=== PATIENT | male | born 1940 | race Caucasian/White ===

== ENCOUNTER 2016-11-25 14:29 | Inpatient (IN) | payer OTHER, MEDICARE ==
[~2016-11-25] VITALS: Ht 167.6 cm; Wt 92.5 kg
[~2016-11-25 14:29] MED LIST: ATOR1TAB18 PO; BACT800T5 PO; CIPR-9 PO; DIFL200T PO; METO-309 PO; NITR1SUB3 SL; ONDA1TAB17 PO
[2016-11-25 14:32] VITALS: BP 127/58; PULSE 118; RESP 24; TEMP 97.9; O2SAT 95
--- NOTE | 2016-11-25 15:03 | PD ---
HPI Chief Complaint: Abnormal Results Time Seen by Provider: 14:59 Travel History International Travel<30 days: No Contact w/Intl Traveler<30days: No Traveled to known affect area: No History of Present Illness HPI The patient is a 76-year-old male who presents emergency department from his oncologist office for abnormal lab results. 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 The patient has undergone 2 rounds of chemotherapy, the last dose approximately 3 weeks ago by his oncologist, Dr. Conteh. The patient had lab work performed at his oncologist office/the [facility], which revealed abnormal lab results including low white count, anemia, and thrombocytopenia. The patient does complain of mild shortness of breath with exertion as well as generalized weakness. He denies any acute chest pain, nausea, vomiting, or abdominal pain. Symptoms are moderate, possibly exacerbated by anemia and history of AML, and there are no current alleviating factors. He denies any fever. PFSH Past Medical History Narrative Medical AML Heart Rhythm Problems: No Cancer: No Cardiac Catheterization: No Cardiovascular Problems: Yes (TRIPLE BYPASS) High Cholesterol: Yes Chemotherapy: No Congestive Heart Failure: No Coronary Artery Disease: Yes Diabetes: No Diminished Hearing: Yes Endocrine: No Genitourinary: No Hiatal Hernia: Yes Hypertension: Yes Immune Disorder: No Musculoskeletal: No Neurologic: No Psychiatric: No Reproductive: No Respiratory: No Immunizations Current: Yes Radiation Therapy: No Thyroid Disease: No Past Surgical History Cardiac Surgery: Yes (BYPASS X 3 2003) Coronary Artery Bypass Graft: Yes Social History Alcohol Use: No Tobacco Use: No Substance Use: No Allergies-Medications (Allergen,Severity, Reaction): Coded Allergies: No Known Allergies (Unverified , 11/25/16) Reported Meds & Prescriptions Reported Meds & Active Scripts Active Lopressor (Metoprolol Tartrate) 50 Mg Tab 50 Mg PO Q12HR 30 Days Reported Atorvastatin (Atorvastatin Calcium) 80 Mg Tab 80 Mg PO HS Ondansetron (Ondansetron HCl) 8 Mg Tab 8 Mg PO TID Nitroglycerin SL (Nitroglycerin) 0.4 Mg Subl 0.4 Mg SL DIRECTED PRN ONE TABLET UNDER THE TONGUE NEEDED FOR CHEST PAIN, MAY REPEAT EVERY FIVE MINUTES FOR A TOTAL OF 3 DOSES OR CALL 911 IF NO RELIEF Review of Systems Except as stated in HPI: all other systems reviewed are Neg HENT: Positive: Lightheadedness Cardiovascular: No: Chest Pain or Discomfort Respiratory: Positive: Shortness of Breath Gastrointestinal: Positive: Constipation, No: Nausea, Vomiting, Abdominal Pain Genitourinary: No: Decreased Urinary Output Musculoskeletal: Positive: Weakness Neurologic: Positive: Weakness Physical Exam Narrative GENERAL: Awake, alert, pleasant 76-year-old male who appears his stated age and appears mildly short of breath. SKIN: Warm and dry. HEAD: Atraumatic. Normocephalic. EYES: Pallor noted bilateral. ENT: No nasal bleeding or discharge. Mucous membranes pink and moist. NECK: Trachea midline. No JVD. CARDIOVASCULAR: Regular, tachycardic with a heart rate of 115. Port in place right chest wall. RESPIRATORY: No accessory muscle use. Clear to auscultation. Breath sounds equal bilaterally. GASTROINTESTINAL: Abdomen soft, non-tender, nondistended. No rebound tenderness. MUSCULOSKELETAL: No obvious deformities. No clubbing. No cyanosis. No edema. NEUROLOGICAL: Awake and alert. No obvious cranial nerve deficits. Motor grossly within normal limits. Normal speech. PSYCHIATRIC: Appropriate mood and affect; insight and judgment normal. Data Data Last Documented VS Vital Signs Date Time Temp Pulse Resp B/P Pulse Ox O2 Delivery O2 Flow Rate FiO2 11/25/16 14:58 18 11/25/16 14:32 97.9 118 127/58 95 Room Air Orders Type And Screen (11/25/16 15:00) Complete Blood Count With Diff (11/25/16 15:00) Basic Metabolic Panel (Bmp) (11/25/16 15:00) Chest, Single Ap (11/25/16 ) Act Partial Throm Time (Ptt) (11/25/16 15:00) Prothrombin Time / Inr (Pt) (11/25/16 15:00) Red Blood Cells Irradiated (11/25/16 15:13) Blood Product Administration .UPON TRANSFUSION (11/25/16 15:13) Sodium Chlor 0.9% 250 Ml Inj (Ns 250 Ml (11/25/16 15:15) Diphenhydramine (Benadryl) (11/25/16 15:15) Acetaminophen (Tylenol) (11/25/16 15:15) Place In Observation (11/25/16 ) ^ Notify Dr: Blood Pressure (11/25/16 16:04) ^ Notify Dr: Other (11/25/16 16:04) Blood Culture (11/25/16 16:04) ^ Obtain As Needed (11/25/16 16:04) ^ Obtain As Needed (11/25/16 16:04) Vital Signs (Adult) Q4H (11/25/16 16:04) Activity Oob Ad Nguyen (11/25/16 16:04) Bedside Glucose BRET.AC&HS (11/25/16 16:04) ^ Wing Commander / Telemetry .CONTINUOUS (11/25/16 16:04) Intake + Output BRET.QSHIFT (11/25/16 16:04) Diet Heart Healthy (11/25/16 Dinner) Sodium Chlor 0.9% 1000 Ml Inj (Ns 1000 M (11/25/16 17:00) Sodium Chloride 0.9% Flush (Ns Flush) (11/25/16 16:15) Sodium Chloride 0.9% Flush (Ns Flush) (11/25/16 21:00) Acetaminophen (Tylenol) (11/25/16 17:00) Ondansetron Inj (Zofran Inj) (11/25/16 17:00) Bisacodyl Supp (Dulcolax Supp) (11/25/16 17:00) Docusate Sodium (Colace) (11/25/16 17:00) Magnesium Hydroxide Liq (Milk Of Magnesi (11/25/16 17:00) Sennosides (Senokot) (11/25/16 17:00) Basic Metabolic Panel (Bmp) (11/26/16 06:00) Complete Blood Count With Diff (11/26/16 06:00) Pt Request For Service (11/25/16 16:04) Ot Request For Service (11/25/16 16:04) Case Management Consult (11/25/16 16:04) Zolpidem (Ambien) (11/25/16 21:00) Scd Bilateral/Knee High BRET.BID (11/25/16 16:04) Acetamin-Hydrocod 325-5 Mg (Charlotte 5-325 (11/25/16 17:00) Acetamin-Hydrocod 325-7.5 Mg ([place]otte 7.5 (11/25/16 17:00) Morphine Inj (Morphine Inj) (11/25/16 17:00) Naloxone Inj (Narcan Inj) (11/25/16 16:15) Atorvastatin (Lipitor) (11/25/16 21:00) Metoprolol Tartrate (Lopressor) (11/25/16 21:00) Protein Corrected Calcium(Pcc) (11/25/16 15:23) Consult Medical Oncology (11/25/16 ) Blood Culture (11/25/16 16:28) Labs Laboratory Tests Test 11/25/16 15:23 White Blood Count 1.5 TH/MM3 Red Blood Count 1.18 MIL/MM3 Hemoglobin 3.8 GM/DL Hematocrit 10.8 % Mean Corpuscular Volume 92.2 FL Mean Corpuscular Hemoglobin 32.2 PG Mean Corpuscular Hemoglobin 35.0 % Concent Red Cell Distribution Width 21.5 % Platelet Count 18 TH/MM3 Mean Platelet Volume 7.6 FL Neutrophils (%) (Auto) % Lymphocytes (%) (Auto) % Monocytes (%) (Auto) % Eosinophils (%) (Auto) % Basophils (%) (Auto) % Neutrophils # (Auto) TH/MM3 Lymphocytes # (Auto) TH/MM3 Monocytes # (Auto) TH/MM3 Eosinophils # (Auto) TH/MM3 Basophils # (Auto) TH/MM3 CBC Comment AUTO DIFF Differential Total Cells 100 Counted Lymphocytes % 63 % Monocytes % 1 % Differential Comment FINAL DIFF MANUAL Blastocytes 36 % Platelet Estimate RARE Platelet Morphology Comment NORMAL Sodium Level 138 MEQ/L Potassium Level 3.3 MEQ/L Chloride Level 105 MEQ/L Carbon Dioxide Level 21.7 MEQ/L Anion Gap 11 MEQ/L Blood Urea Nitrogen 20 MG/DL Creatinine 0.80 MG/DL Estimat Glomerular Filtration 94 ML/MIN Rate Random Glucose 116 MG/DL Calcium Level 7.1 MG/DL Protein Corrected Calcium 7.6 MG/DL Total Protein 6.2 GM/DL Blood Type A POSITIVE Antibody Screen NEGATIVE Crossmatch Irradiated/Leukocyte-Reduced RBC Blood Bank Comment [facility] Medical Decision Making Medical Screen Exam Complete: Yes Emergency Medical Condition: Yes Medical Record Reviewed: Yes Interpretation(s) I reviewed the patient's labs that were performed at the [facility] earlier today. The patient's white count was 1.7, hemoglobin 4.2, and platelet count of 26. Last Impressions Chest X-Ray 11/25/16 0000 Signed Impressions: Service Date/Time: Friday, November 25, 2016 15:01 - CONCLUSION: No acute disease. No significant change has occurred. Brendan Chow MD Laboratory Tests Test 11/25/16 15:23 White Blood Count 1.5 TH/MM3 Red Blood Count 1.18 MIL/MM3 Hemoglobin 3.8 GM/DL Hematocrit 10.8 % Mean Corpuscular Volume 92.2 FL Mean Corpuscular Hemoglobin 32.2 PG Mean Corpuscular Hemoglobin 35.0 % Concent Red Cell Distribution Width 21.5 % Platelet Count 18 TH/MM3 Mean Platelet Volume 7.6 FL Neutrophils (%) (Auto) % Lymphocytes (%) (Auto) % Monocytes (%) (Auto) % Eosinophils (%) (Auto) % Basophils (%) (Auto) % Neutrophils # (Auto) TH/MM3 Lymphocytes # (Auto) TH/MM3 Monocytes # (Auto) TH/MM3 Eosinophils # (Auto) TH/MM3 Basophils # (Auto) TH/MM3 CBC Comment AUTO DIFF Differential Total Cells 100 Counted Lymphocytes % 63 % Monocytes % 1 % Differential Comment FINAL DIFF MANUAL Blastocytes 36 % Platelet Estimate RARE Platelet Morphology Comment NORMAL Sodium Level 138 MEQ/L Potassium Level 3.3 MEQ/L Chloride Level 105 MEQ/L Carbon Dioxide Level 21.7 MEQ/L Anion Gap 11 MEQ/L Blood Urea Nitrogen 20 MG/DL Creatinine 0.80 MG/DL Estimat Glomerular Filtration 94 ML/MIN Rate Random Glucose 116 MG/DL Calcium Level 7.1 MG/DL Protein Corrected Calcium 7.6 MG/DL Total Protein 6.2 GM/DL Blood Type A POSITIVE Antibody Screen NEGATIVE Crossmatch Irradiated/Leukocyte-Reduced RBC Blood Bank Comment Differential Diagnosis Differential diagnosis includes AML, pancytopenia, symptomatic anemia, thrombus that opinion, neutropenia, GI bleed. Narrative Course The patient's port was accessed, labs were drawn and sent, and the patient was placed on cardiac telemetry monitoring and continuous pulse oximetry monitoring. I discussed the patient with the on-call oncologist, Dr. Grier, who agrees with admission and transfusion of 4 units of irradiated blood. Therefore , the on-call medical service, [facility], were paged as the patient's insurance is [employer]. The patient will be admitted to the oncology floor. After discussion with Dr. El it was agreed the patient would not receive platelets. Physician Communication Physician Communication [facility] were paged for admission. I discussed the patient with Dr. Pettit who agrees with admission. He also requests admission to Dr. El, therefore, I called Dr. El back and placed a consult. He will evaluate the patient in the emergency department. Diagnosis Primary Impression: Symptomatic anemia Additional Impression: Pancytopenia Admitting Information Admitting Physician Requests: Admit Condition: Stable Tico Hess MD Nov 25, 2016 15:03
[2016-11-25] MEDS ORDERED: SODIUM CHLOR 0.9% 250 ML INJ 250 ML IV ONE (15:15)
--- NOTE | 2016-11-25 15:42 | RADRPT ---
EXAM DATE/TIME: 11/25/2016 15:01 [facility] COMPARISON: CHEST SINGLE AP, October 20, 2016, 0:13. INDICATIONS : Shortness of breath MEDICAL HISTORY : Leukemia. SURGICAL HISTORY : CABG. Port placement. ENCOUNTER: Initial ACUITY: 1 day PAIN SCORE: 0/10 LOCATION: Bilateral chest FINDINGS: Again noted is evidence of prior median sternotomy cardiac surgery with an indwelling right venous ca theter and some pleural-parenchymal scarring in the left base. There is no consolidative infiltrate o r change. CONCLUSION: No acute disease. No significant change has occurred. Brendan Chow MD on November 25, 2016 at 15:40 Board Certified Radiologist. This report was verified electronically.
[2016-11-25] MEDS: diphenhydrAMINE HCL 25 MG CAP PO PRN (15:43)
[2016-11-25] MEDS: ACETAMINOPHEN 325 MG TAB PO PRN (15:43)
[2016-11-25 16:03] LABS: MEAN CELL VOLUME 92.2 FL (80.0-100.0); MEAN CORPUSCULAR HEMOGLOBIN 32.2 PG (27.0-34.0); RED BLOOD COUNT 1.18 MIL/MM3 (4.50-5.90); RED CELL DISTRIBUTION WIDTH 21.5 % (11.6-17.2); WHITE BLOOD COUNT 1.5 TH/MM3 (4.0-11.0)
[2016-11-25 16:04] LABS: HEMO FLAGS AUTO DIFF
[2016-11-25 16:07] LABS: HEMATOCRIT 10.8 % (39.0-51.0); PLATELET COUNT 18 TH/MM3 (150-450)
[2016-11-25 16:14] LABS: BICARBONATE 21.7 MEQ/L (21.0-32.0); POTASSIUM 3.3 MEQ/L (3.5-5.1)
[2016-11-25] MEDS ORDERED: NALOXONE HCL 0.4 MG/ML AMP IV PRN (16:15)
[2016-11-25] MEDS ORDERED: SODIUM CHLORIDE 0.9% FLUSH 5 ML FLUSH FLUSH PRN (16:15)
[2016-11-25 16:33] LABS: CALCIUM-PROTEIN CORRECTED 7.6 MG/DL (8.5-10.1)
[2016-11-25] MEDS ORDERED: ACETAMINOPHEN/HYDROcodone 325 MG/5 MG TAB PO PRN ×2 (17:00→19:00)
[2016-11-25] MEDS ORDERED: ACETAMINOPHEN/HYDROcodone 325 MG/7.5 MG TAB PO PRN ×2 (17:00→19:00)
[2016-11-25] MEDS ORDERED: SENNOSIDES 8.6 MG TAB PO PRN (17:00)
[2016-11-25] MEDS ORDERED: BISACODYL 10 MG SUPP PR PRN (17:00)
[2016-11-25] MEDS ORDERED: MORPHINE SULFATE 4 MG/ML INJ IV PRN (17:00)
[2016-11-25] MEDS ORDERED: ONDANSETRON HCL 4 MG/2 ML VIAL IVP PRN (17:00)
[2016-11-25 17:03] LABS: BLASTS 36 % (0-0); WBC DIFF SAMPLE 100
[2016-11-25 17:04] LABS: PLATELET ESTIMATE SMEAR RARE (NORMAL); PLATELET MORPHOLOGY NORMAL (NORMAL)
[2016-11-25 17:05] LABS: SCAN/DIFF FINAL DIFF MANUAL
[2016-11-25 17:18] LABS: APTT (PATIENT) 25.5 SEC (24.3-30.1); INTERNATIONAL NORMALIZED RATIO 1.2 RATIO; PROTHROMBIN TIME - PATIENT 13.1 SEC (9.8-11.6)
[2016-11-25 17:19] VITALS: BP 125/57; PULSE 82; RESP 18; TEMP 98.5; O2SAT 95
[2016-11-25] MEDS: SODIUM CHLORIDE 0.9% FLUSH 5 ML FLUSH FLUSH SCH (17:38)
[2016-11-25] MEDS: DOCUSATE SODIUM 100 MG CAP PO SCH (17:39)
[2016-11-25 17:47] VITALS: BP 126/62; PULSE 84; RESP 18; TEMP 98.3; O2SAT 95
--- NOTE | 2016-11-25 18:51 | HHI.HP ---
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 Patient denied any cough, flulike syndrome, diarrhea or constipation or dysuria , fever or chills, no dizziness or lightheadedness, no abdominal pain diarrhea constipation, nausea or vomiting. Patient was on vidaza by Dr. Conteh, I discussed with ED physician, and Dr. 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 Perdomo decide on the next above treatment, versus 2 start cytarabine or Review of Systems Other All 10 systems reviewed and was positive for what is mentioned in history of present illness otherwise negative Past Family Social History Past Medical History Coronary artery disease status post CABG AML status post chemotherapy Hypertension Hyperlipidemia Past Surgical History CABG Allergies: Coded Allergies: No Known Allergies (Unverified , 11/25/16) Family History Reviewed noncontributory Social History Denied tobacco or illicit drug abuse He drinks draft beer 8 ounces every other day Physical Exam Vital Signs Vital Signs Date Time Temp Pulse Resp B/P Pulse Ox O2 Delivery O2 Flow Rate FiO2 11/25/16 17:47 98.3 84 18 126/62 95 Room Air 11/25/16 17:19 98.5 82 18 125/57 95 Room Air 11/25/16 14:58 18 11/25/16 14:32 97.9 118 24 127/58 95 Room Air Physical Exam GENERAL: This is a well-nourished, well-developed patient, in no apparent distress. SKIN: No rashes, warm and dry HEAD: Atraumatic. Normocephalic. EYES: Pupils equal round and reactive. Extraocular motions intact. No scleral icterus. ENT: Nose without bleeding, or drainage, Airway patent. NECK: Trachea midline. Supple CARDIOVASCULAR: Regular rate and rhythm without murmurs, gallops, or rubs. RESPIRATORY: Fair air entry bilaterally. No wheezes, rales, or rhonchi. GASTROINTESTINAL: Abdomen soft, non-tender, nondistended. Positive bowel sounds MUSCULOSKELETAL: Extremities without clubbing, cyanosis, or edema. Pedal pulses appreciated NEUROLOGICAL: Awake and alert. Moves all extremity. Normal speech.no focal neurological deficit Laboratory Laboratory Tests Test 11/25/16 15:23 White Blood Count 1.5 Red Blood Count 1.18 Hemoglobin 3.8 Hematocrit 10.8 Mean Corpuscular Volume 92.2 Mean Corpuscular Hemoglobin 32.2 Mean Corpuscular Hemoglobin 35.0 Concent Red Cell Distribution Width 21.5 Platelet Count 18 Mean Platelet Volume 7.6 Neutrophils (%) (Auto) Lymphocytes (%) (Auto) Monocytes (%) (Auto) Eosinophils (%) (Auto) Basophils (%) (Auto) Neutrophils # (Auto) Lymphocytes # (Auto) Monocytes # (Auto) Eosinophils # (Auto) Basophils # (Auto) CBC Comment AUTO DIFF Differential Total Cells 100 Counted Lymphocytes % 63 Monocytes % 1 Differential Comment FINAL DIFF MANUAL Blastocytes 36 Platelet Estimate RARE Platelet Morphology Comment NORMAL Prothrombin Time 13.1 Prothromb Time International 1.2 Ratio Activated Partial 25.5 Thromboplast Time Sodium Level 138 Potassium Level 3.3 Chloride Level 105 Carbon Dioxide Level 21.7 Anion Gap 11 Blood Urea Nitrogen 20 Creatinine 0.80 Estimat Glomerular Filtration 94 Rate Random Glucose 116 Calcium Level 7.1 Protein Corrected Calcium 7.6 Total Protein 6.2 Blood Type A POSITIVE Antibody Screen NEGATIVE Crossmatch Irradiated/Leukocyte-Reduced RBC Blood Bank Comment Date/Time Procedure Status Source Growth 11/25/16 16:50 Aerobic Blood Culture Received Blood Peripheral Pending 11/25/16 16:50 Anaerobic Blood Culture Received Blood Peripheral Pending Result Diagram: 11/25/16 1523 11/25/16 1523 Imaging Last Impressions Chest X-Ray 11/25/16 0000 Signed Impressions: Service Date/Time: Wednesday, November 25, 2016 15:01 - CONCLUSION: No acute disease. No significant change has occurred. Brendan Chow MD Assessment and Plan Assessment and Plan 76 years old male who was on chemotherapy came with Severe pancytopenia with (anemia, leukopenia, thrombocytopenia) hemoglobin of 3.8, WBC 1.5 platelet count 18 K, mostly bone marrow failure, ? 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 Yoo's in length Transferred 4 units of irradiated packed red blood cells, will try to stabilize hemoglobin at 10 Platelet transfusion , and Neupogen per oncology pain mangement with norco/morphine code status d/w pt and , decided on waiting for pt to discuss that with , we will consider palliative care consult . Start prophylaxis antibiotic and antifungal with Levaquin and Diflucan considering his pain with severe low neutrophils and history of neutropenia and odynophagia Consult infectious disease for abx recommendation Patient need to see Dr. Conteh discussed with him Resume education from home meds Discussed Condition With Patient, ED physician History medical oncology Dr. El Physician Certification 2 Midnight Certification Type: Admission for Inpatient Services Order for Inpatient Services The services are ordered in accordance with Medicare regulations or non- Medicare payer requirements, as applicable. In the case of services not specified as inpatient-only, they are appropriately provided as inpatient services in accordance with the 2-midnight benchmark. Estimated LOS (days): 2 days is the estimated time the patient will need to remain in the hospital, assuming treatment plan goals are met and no additional complications. Post-Hospital Plan: Not yet determined Mee Pettit MD Nov 25, 2016 18:51
[2016-11-25] MEDS ORDERED: MORPHINE SULFATE 4 MG/ML INJ IV PUSH PRN (19:00)
--- NOTE | 2016-11-25 19:45 | MB ---
cc: GROVER DELAROSA M.D. DATE OF CONSULTATION: 11/25/2016 REASON FOR CONSULTATION: Severe life-threatening pancytopenia in a 76 year-old male. PATIENT PROFILE The patient is a 76 year old white male. He is single. He has never been . He lives alone. He was born in [place], [place]. He has lived in [place] since 1965. He is retired and has worked for [employer]. He has never smoked. He presently does not drink. In the past there was a significant consumption of alcohol, primarily beer. HISTORY OF PRESENT ILLNESS The patient is a 76 year old male who is a patient of Dr. Zack Cnoteh. Dr. Conteh originally saw him on 07/26/2016 when he presented to [facility] with a hemoglobin of 8.7, white count 1100 and platelet count 94,000. 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 The biopsy showed a cellularity of only 15 to 20%. The patient was treated with Vidaza. I believe he has received two cycles of Vidaza. His last treatment was 3-4 weeks ago and there was supposed to be a follow up CBC and platelet counts. For some reason this did not take place. He became increasingly weak. He went to the emergency room today, 11/25, and was found to have a hemoglobin of 4.2, hematocrit 11, white count 1700 and platelet count of 26,000. The CBC was repeated. Hemoglobin 3.8, white count 1,500, platelets 18,000. The neutrophils were essentially 0. Blasts were listed as 36% and, therefore, the blast count is over 500. He has had no fever. He has had no bleeding. Other studies include lytes, BUN and creatinine, notable for potassium of 3.3. At the time the patient had a bone marrow, he was found to have an abnormal karyotype. He had an unfavorable translocation puts him in the poor prognosis category. PAST SURGICAL HISTORY: 1. [place]. 2. Fracture of left arm. PAST MEDICAL HISTORY: 1. Coronary artery disease, status post bypass surgery. 2. Hyperlipidemia. 3. Hypertension. 4. Refractory anemia with excess blasts, status post what I believe is two cycles of Vidaza. ALLERGIES: No known allergies. FAMILY HISTORY: Noncontributory. REVIEW OF SYSTEMS No change in vision or hearing. No chest pain, palpitations. He has not noted lymphadenopathy. Respiratory: Mild exertional shortness of breath. No abdominal or pelvic pain. No melena, hematochezia. No dysuria, frequency, hematuria. No bleeding of any type. No skin problems, no psychiatric problems. PHYSICAL EXAMINATION: The physical exam reveals a pale male. VITAL SIGNS: Blood pressure 120/60, respiratory rate 18, pulse 84 afebrile. O2 sat 95%. Head is normocephalic. Sclera and conjunctivae are normal. Oropharynx is unremarkable. No cervical, supraclavicular, axillary or inguinal adenopathy. Heart: Regular rhythm. Lungs: Clear without rales, wheezes or rhonchi. Abdomen: Without splenomegaly, masses or tenderness. Extremities: Trace edema. Musculoskeletal: No bone pain. Neurologic: No weakness. Cognition, affect normal. Skin: Unremarkable. ASSESSMENT The patient is 76 year male who presented with refractory anemia with excess blasts dating back to July 28, 2016 when he had a bone marrow. He has received, I believe , two cycles of Vidaza. This has clearly been ineffective. In looking at his neutrophil count, his neutrophil count has been essentially 0 since June of 2016. I cannot find a neutrophil count greater than 200. He is symptomatic from the anemia. He is not having any bleeding from the thrombocytopenia. PLAN: 1. Recommend transfusion of packed cells slowly to bring the hemoglobin up to about 10 as he is not making producing much blood. He will feel a lot better and the hemoglobin will again fall. 2. If the platelets reach 10,000, then I would transfuse platelets or if there is bleeding below 20,000, I would transfuse. 3. He has no neutrophils. If he gets a fever, then he will need to be on antibiotics. One could place him on prophylactic, Cipro and difluconazole. This is not a bad idea but at the same time he has managed without a fever for several months and therefore I would observe. 4. Question of what to do. At this point one can consider supportive care. I don't feel he will do well with induction chemotherapy. Another possibility would be decitabine, based on a recent article in the [place] Journal of Medicine. Unfortunately the outcome is likely to be poor and survival may be short. In the meantime, I would transfuse packed cells and then discharge to home. He has a follow up apt with Dr. Perdomo This coming Wednesday. MD HARDEEP Lipscomb/MELISSA /6:16 PM /7:13 PM MTDAntolin
[2016-11-25] MEDS ORDERED: LEVOFLOXACIN 500 MG PREMIX INJ 100 ML IV SCH (20:00)
[2016-11-25 20:31] VITALS: BP 133/75; PULSE 94; RESP 18; TEMP 98.5; O2SAT 97
[2016-11-25 20:50] VITALS: BP 135/58; PULSE 97; RESP 18; TEMP 98.7; O2SAT 100
[2016-11-25] MEDS ORDERED: ZOLPIDEM TARTRATE 5 MG TAB PO PRN (21:00)
[2016-11-25] MEDS ORDERED: FLUCONAZOLE 200 MG PREMIX BAG 100 ML IV ONE (21:00)
[2016-11-25] MEDS: SODIUM CHLOR 0.9% 1000 ML INJ 1,000 ML IV SCH (21:07)
[2016-11-25] MEDS: METOPROLOL TARTRATE 50 MG TAB PO SCH (21:08)
[2016-11-25] MEDS: ATORVASTATIN 80 MG TAB PO SCH (21:08)
[2016-11-25 21:27] VITALS: PULSE 97
[2016-11-26] VITALS (14 sets, daily range): BP systolic 106–159; BP diastolic 51–77; PULSE 81–101; RESP 2–20; TEMP 98–99.3; O2SAT 95–99
[2016-11-26 01:06] LABS: REVIEW FLAG FINAL
[2016-11-26 01:10] LABS: HEMATOCRIT 14.1 % (39.0-51.0)
[2016-11-26] MEDS: SODIUM CHLOR 0.9% 1000 ML INJ 1,000 ML IV SCH ×3 (03:00→21:24)
[2016-11-26] MEDS: DOCUSATE SODIUM 100 MG CAP PO SCH ×2 (05:19→17:00)
[2016-11-26] MEDS: diphenhydrAMINE HCL 25 MG CAP PO PRN ×2 (06:29→12:03)
[2016-11-26] MEDS: ACETAMINOPHEN 325 MG TAB PO PRN ×2 (06:29→12:04)
[2016-11-26] MEDS: METOPROLOL TARTRATE 50 MG TAB PO SCH ×2 (09:00→21:23)
[2016-11-26] MEDS: SODIUM CHLORIDE 0.9% FLUSH 5 ML FLUSH FLUSH SCH ×2 (09:00→21:23)
--- NOTE | 2016-11-26 13:34 | PD.ID.CON ---
History of Present Illness Service ID Consult Requested By Dr Pettit Reason for Consult antibiotic recommndations, immunosuppresed pt recent abx treatment Primary Care Physician Codey Jaimes MD Diagnoses: History of Present Illness Pt is known to me from previous admissionin September76 years old male with history of acute myelocytic leukemia, sp chemotherapy was admitted 4 weeks ago with febrile neutropenia, mucositis and odynaphagia Pt markedly improved on fluconazole and his odynophagia was presumed to be caused by candidal [place] He clinically improved and was released on po diflucan Patient presented to the ED yday complaining of fatigue, dizziness and poor appetite He was noted to have profoud cytopenia He is getting blood transfusions No objective fever CXR is negative Co dark urine that he noted at home, but denies other urinary complaints No nausea, vomiting + loose stool Blood clx is negative at 1 day Review of Systems Other as per history of present illness, the rest of 12 point review is negative Past Family Social History Allergies: Coded Allergies: No Known Allergies (Unverified , 11/25/16) Past Medical History Coronary artery disease status post CABG AML status post chemotherapy Hypertension Hyperlipidemia Past Surgical History CABG in 2002 Active Ordered Medications Medications where reviewed in EMR Antibiotics Include: levaquine IV fluconazole x 1 dose Family History sister with colon cancer Social History Denied tobacco or illicit drug abuse He drinks couple beers once or twice a week Physical Exam Vital Signs Vital Signs Date Time Temp Pulse Resp B/P Pulse Ox O2 Delivery O2 Flow Rate FiO2 11/26/16 12:52 98.1 82 18 134/62 98 11/26/16 12:12 98.0 81 20 128/52 99 11/26/16 10:00 98.2 81 18 110/58 96 11/26/16 08:00 98.1 83 20 106/51 96 11/26/16 08:00 84 11/26/16 06:34 98.0 93 20 137/62 99 11/26/16 06:15 98.0 92 20 127/58 95 11/26/16 01:45 98.8 93 2 111/56 98 11/26/16 01:30 98.9 90 20 130/56 98 11/26/16 00:15 99.3 91 18 128/63 99 11/25/16 21:27 97 11/25/16 20:50 98.7 97 18 135/58 100 11/25/16 20:31 98.5 94 18 133/75 97 Room Air 11/25/16 17:47 98.3 84 18 126/62 95 Room Air 11/25/16 17:19 98.5 82 18 125/57 95 Room Air 11/25/16 14:58 18 11/25/16 14:32 97.9 118 24 127/58 95 Room Air Physical Exam CONSTITUTIONAL/GENERAL: This is a well nourished patient, in no apparent distress. OOB in chait TUBES/LINES/DRAINS: PORT in place R chest - looks OK SKIN: No jaundice, rashes, or lesions. . Skin temperature appropriate. Not diaphoretic. HEAD: Atraumatic. Normocephalic. EYES: Pupils equal and round and reactive. Extraocular motions intact. No scleral icterus. No injection or drainage. Fundi not examined. ENT: Hearing grossly normal. Nose without bleeding or purulent drainage. Oral mucosae w/o thrush or lesions Dentition is poor NECK: Trachea midline. Supple, nontender. No palpable thyroid enlargement or nodularity. CARDIOVASCULAR: Regular rate and rhythm without murmurs, gallops, or rubs. No JVD. Peripheral pulses symmetric. RESPIRATORY/CHEST: Symmetric, unlabored respirations. Clear to auscultation. Breath sounds equal bilaterally. No wheezes, rales, or rhonchi. GASTROINTESTINAL: Abdomen soft, non-tender, nondistended. No hepato-splenomegaly , or palpable masses. No guarding. Bowel sounds present. GENITOURINARY: Without palpable bladder distension MUSCULOSKELETAL: Extremities without clubbing, cyanosis, 1+ tight BLE edema. No joint tenderness or effusion noted. No calf tenderness. No mottling or clubbing. LYMPHATICS: No palpable cervical or supraclavicular adenopathy. NEUROLOGICAL: Awake and alert. Motor and sensory grossly within normal limits. Follows commands. Normal speech Moves all extremities. PSYCHIATRIC: No obvious anxiety/depression. no apparent hallucinations or other psychotic thought process. Laboratory Laboratory Tests Test 11/25/16 11/26/16 15:23 00:24 White Blood Count 1.5 Red Blood Count 1.18 Hemoglobin 3.8 4.9 Hematocrit 10.8 14.1 Mean Corpuscular Volume 92.2 Mean Corpuscular Hemoglobin 32.2 Mean Corpuscular Hemoglobin 35.0 Concent Red Cell Distribution Width 21.5 Platelet Count 18 Mean Platelet Volume 7.6 Neutrophils (%) (Auto) Lymphocytes (%) (Auto) Monocytes (%) (Auto) Eosinophils (%) (Auto) Basophils (%) (Auto) Neutrophils # (Auto) Lymphocytes # (Auto) Monocytes # (Auto) Eosinophils # (Auto) Basophils # (Auto) CBC Comment AUTO DIFF Differential Total Cells 100 Counted Lymphocytes % 63 Monocytes % 1 Differential Comment FINAL DIFF MANUAL Blastocytes 36 Platelet Estimate RARE Platelet Morphology Comment NORMAL Prothrombin Time 13.1 Prothromb Time International 1.2 Ratio Activated Partial 25.5 Thromboplast Time Sodium Level 138 Potassium Level 3.3 Chloride Level 105 Carbon Dioxide Level 21.7 Anion Gap 11 Blood Urea Nitrogen 20 Creatinine 0.80 Estimat Glomerular Filtration 94 Rate Random Glucose 116 Calcium Level 7.1 Protein Corrected Calcium 7.6 Total Protein 6.2 Blood Type A POSITIVE Antibody Screen NEGATIVE Crossmatch Irradiated/Leukocyte-Reduced RBC Blood Bank Comment Date/Time Procedure Status Source Growth 11/25/16 16:50 Aerobic Blood Culture - Preliminary Resulted Blood Peripheral NO GROWTH IN 1 DAY 11/25/16 16:50 Anaerobic Blood Culture - Preliminary Resulted Blood Peripheral NO GROWTH IN 1 DAY Result Diagram: 11/26/16 0024 11/25/16 1523 Imaging Last Impressions Chest X-Ray 11/25/16 0000 Signed Impressions: Service Date/Time: Friday, November 25, 2016 15:01 - CONCLUSION: No acute disease. No significant change has occurred. Brendan Chow MD Assessment and Plan Assessment and Plan AML sp chemo - blasts present in periferal blood Neutropenia, profound Pancytponia with plts < 20K and Hb of 3.8 Symptomatic anemia mucositis, resolved Probable candidal esophagitis - sp treatment - resolved ? UTI vs hematuria - cont levaquin po for now - chk urine clx -monitor clincially - monitor blood clx untill final Discussed Condition With Teresa Hutchinson MD Nov 26, 2016 13:34
[2016-11-26 17:21] LABS: BICARBONATE 25.1 MEQ/L (21.0-32.0); POTASSIUM 3.6 MEQ/L (3.5-5.1)
[2016-11-26 17:51] LABS: HEMATOCRIT 23.3 % (39.0-51.0); HEMO FLAGS AUTO DIFF; MEAN CORPUSCULAR HEMOGLOBIN 30.6 PG (27.0-34.0); RED BLOOD COUNT 2.74 MIL/MM3 (4.50-5.90); RED CELL DISTRIBUTION WIDTH 15.1 % (11.6-17.2); WHITE BLOOD COUNT 1.9 TH/MM3 (4.0-11.0)
[2016-11-26 17:54] LABS: PLATELET COUNT 14 TH/MM3 (150-450)
[2016-11-26 18:14] LABS: CORRECTED NUCLEATED RBC 2 /100 WBC (0-0); POLYS (SEG NEUTROPHILS) 2 % (16-70); WBC DIFF SAMPLE 100
[2016-11-26 18:17] LABS: BLASTS 41 % (0-0)
[2016-11-26 18:18] LABS: PLATELET ESTIMATE SMEAR RARE (NORMAL); PLATELET MORPHOLOGY NORMAL (NORMAL); SCAN/DIFF FINAL DIFF MANUAL
--- NOTE | 2016-11-26 20:04 | HHI.PR ---
Subjective Remarks Follow up on severe life-threatening pancytopenia Patient seen and examined earlier today Ported no fever chest pain cough, diarrhea or constipation, chills or night sweat Objective Vitals Vital Signs Date Time Temp Pulse Resp B/P Pulse Ox O2 Delivery O2 Flow Rate FiO2 11/26/16 16:10 98.2 81 18 112/58 98 11/26/16 16:00 98.9 101 20 159/73 97 11/26/16 12:52 98.1 82 18 134/62 98 11/26/16 12:12 98.0 81 20 128/52 99 11/26/16 12:00 98.6 86 20 130/62 99 11/26/16 10:00 98.2 81 18 110/58 96 11/26/16 08:00 98.1 83 20 106/51 96 11/26/16 08:00 84 11/26/16 06:34 98.0 93 20 137/62 99 11/26/16 06:15 98.0 92 20 127/58 95 11/26/16 01:45 98.8 93 2 111/56 98 11/26/16 01:30 98.9 90 20 130/56 98 11/26/16 00:15 99.3 91 18 128/63 99 11/25/16 21:27 97 11/25/16 20:50 98.7 97 18 135/58 100 11/25/16 20:31 98.5 94 18 133/75 97 Room Air I/O 11/25/16 11/25/16 11/25/16 11/26/16 11/26/16 11/26/16 06:59 14:59 22:59 06:59 14:59 22:59 Intake Total 240 ml 480 ml 480 ml Output Total 600 ml 225 ml Balance 240 ml -120 ml 255 ml Intake Oral 240 ml 480 ml 480 ml Output Urine Total 600 ml 225 ml # Voids 1 # Bowel Movements 0 Result Diagram: 11/26/16 1615 11/26/16 1615 Imaging Last Impressions Chest X-Ray 11/25/16 0000 Signed Impressions: Service Date/Time: Friday, November 25, 2016 15:01 - CONCLUSION: No acute disease. No significant change has occurred. Brendan Chow MD Objective Remarks GENERAL: This is a well-nourished, well-developed patient, in no apparent distress. SKIN: No rashes, warm and dry HEAD: Atraumatic. Normocephalic. EYES: Pupils equal round and reactive. Extraocular motions intact. No scleral icterus. ENT: Nose without bleeding, or drainage, Airway patent. NECK: Trachea midline. Supple CARDIOVASCULAR: Regular rate and rhythm without murmurs, gallops, or rubs. RESPIRATORY: Fair air entry bilaterally. No wheezes, rales, or rhonchi. GASTROINTESTINAL: Abdomen soft, non-tender, nondistended. Positive bowel sounds MUSCULOSKELETAL: Extremities without clubbing, cyanosis, or edema. Pedal pulses appreciated NEUROLOGICAL: Awake and alert. Moves all extremity. Normal speech.no focal neurological deficit A/P Assessment and Plan 76 years old male who was on chemotherapy came with Severe pancytopenia with (anemia, leukopenia, thrombocytopenia) hemoglobin of 3.8, WBC 1.5 platelet count 18 K, mostly bone marrow failure, ? 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 El Transferred 4 units of irradiated packed red blood cells, will try to stabilize hemoglobin at 10 Platelet transfusion , and Neupogen per oncology if platelets less than 10 K pain mangement with norco/morphine code status d/w pt and , decided on waiting for pt to discuss that with , we will consider palliative care consult . Start prophylaxis antibiotic and antifungal with Levaquin and Diflucan 1 dose 200 mg IVP, considering his pain with severe low neutrophils and history of neutropenia and odynophagia Appreciate infectious disease consultation for antibiotic recommendation, continue Levaquin switched to by mouth , oncology added cefepime later on 11/26 Patient need to see Dr. Conteh discussed with him Resume education from [facility] Mee Pettit MD Nov 26, 2016 20:04
--- NOTE | 2016-11-26 20:07 | PD.ONC.PN ---
Subjective Subjective Remarks tired and feels weak Objective Data Date Time Temp Pulse Resp B/P Pulse Ox O2 Delivery O2 Flow Rate FiO2 11/26/16 16:10 98.2 81 18 112/58 98 11/26/16 16:00 98.9 101 20 159/73 97 11/26/16 12:52 98.1 82 18 134/62 98 11/26/16 12:12 98.0 81 20 128/52 99 11/26/16 12:00 98.6 86 20 130/62 99 11/26/16 10:00 98.2 81 18 110/58 96 11/26/16 08:00 98.1 83 20 106/51 96 11/26/16 08:00 84 11/26/16 06:34 98.0 93 20 137/62 99 11/26/16 06:15 98.0 92 20 127/58 95 11/26/16 01:45 98.8 93 2 111/56 98 11/26/16 01:30 98.9 90 20 130/56 98 11/26/16 00:15 99.3 91 18 128/63 99 11/25/16 21:27 97 11/25/16 20:50 98.7 97 18 135/58 100 11/25/16 20:31 98.5 94 18 133/75 97 Room Air 11/26/16 11/26/16 11/26/16 07:00 15:00 23:00 Intake Total 480 ml 480 ml Output Total 600 ml 225 ml Balance -120 ml 255 ml Result Diagram: 11/26/16 1615 11/26/16 1615 Laboratory Results Laboratory Tests Test 11/26/16 11/26/16 00:24 16:15 Hemoglobin 4.9 GM/DL 8.4 GM/DL Hematocrit 14.1 % 23.3 % White Blood Count 1.9 TH/MM3 Red Blood Count 2.74 MIL/MM3 Mean Corpuscular Volume 85.0 FL Mean Corpuscular Hemoglobin 30.6 PG Mean Corpuscular Hemoglobin 36.0 % Concent Red Cell Distribution Width 15.1 % Platelet Count 14 TH/MM3 Mean Platelet Volume 7.9 FL Neutrophils (%) (Auto) % Lymphocytes (%) (Auto) % Monocytes (%) (Auto) % Eosinophils (%) (Auto) % Basophils (%) (Auto) % Neutrophils # (Auto) TH/MM3 Lymphocytes # (Auto) TH/MM3 Monocytes # (Auto) TH/MM3 Eosinophils # (Auto) TH/MM3 Basophils # (Auto) TH/MM3 CBC Comment AUTO DIFF Differential Total Cells 100 Counted Neutrophils % (Manual) 2 % Lymphocytes % 52 % Monocytes % 5 % Neutrophils # (Manual) 0.0 TH/MM3 Nucleated Red Blood Cells 2 /100 WBC Differential Comment FINAL DIFF MANUAL Blastocytes 41 % Platelet Estimate RARE Platelet Morphology Comment NORMAL Sodium Level 136 MEQ/L Potassium Level 3.6 MEQ/L Chloride Level 102 MEQ/L Carbon Dioxide Level 25.1 MEQ/L Anion Gap 9 MEQ/L Blood Urea Nitrogen 17 MG/DL Creatinine 0.70 MG/DL Estimat Glomerular Filtration 110 ML/MIN Rate Random Glucose 100 MG/DL Calcium Level 7.7 MG/DL Culture Results Microbiology Date/Time Procedure Status Source Growth 11/25/16 16:00 Aerobic Blood Culture - Preliminary Resulted Blood Peripheral NO GROWTH IN 1 DAY 11/25/16 16:00 Anaerobic Blood Culture - Preliminary Resulted Blood Peripheral NO GROWTH IN 1 DAY 11/25/16 16:50 Aerobic Blood Culture - Preliminary Resulted Blood Peripheral NO GROWTH IN 1 DAY 11/25/16 16:50 Anaerobic Blood Culture - Preliminary Resulted Blood Peripheral NO GROWTH IN 1 DAY Administered Medications Medications (Trade) Dose Ordered Sig/Catina Route PRN Reason Start Time Stop Time Status Last Admin Dose Admin Sodium Chloride (NS 1000 ml Inj) 1,000 ml @ 100 mls/hr Q10H IV 11/25/16 17:00 11/25/16 21:07 IV Flush (NS Flush) 2 ml BID FLUSH 11/25/16 21:00 11/25/16 17:38 Acetaminophen (Tylenol) 650 mg Q4H PRN PO TEMP > 100.4 11/25/16 17:00 11/26/16 12:04 Docusate Sodium (Colace) 100 mg Q12H PO 11/25/16 17:00 11/26/16 05:19 Atorvastatin Calcium (Lipitor) 80 mg HS PO 11/25/16 21:00 11/25/16 21:08 Metoprolol Tartrate (Lopressor) 50 mg Q12HR PO 11/25/16 21:00 11/25/16 21:08 Objective Remarks GENERAL: sallow HEAD: Normocephalic. EYES: No scleral icterus. No injection or drainage. NECK: Supple, trachea midline. No JVD or lymphadenopathy. LYMPHATIC: No adenopathy. CARDIOVASCULAR: irregular rate and rhythm without murmurs. RESPIRATORY: Breath sounds equal bilaterally. No accessory muscle use. GASTROINTESTINAL: Abdomen soft, non-tender, nondistended. EXTREMITIES: +1 edema MUSCULOSKELETAL: Adequate muscle tone. NEUROLOGICAL: No obvious focal deficit. Awake, alert, and oriented x3. PSYCHIATRIC: Appropriate mood and affect; insight and judgment normal. Assessment/Plan Assessment 1: patient had temp of 100.2 few hours ago and now 99.9 with sweating: Must presume he has infection given low neutrophil count. I called Dr. Henriquez and will discontinue levaquin and treat with cefepime and continue Diflucan. 2: would gradually transfuse to 9-10 range as he will feel better and not because the outcome will be improved. 3: I spoke to the patient and brother about the fact that if he has an arrest the likelihood of a meaningful recovery with CPR is remote given AML/RAEB with no neutrophils. He is thinking about implementing his living will and will let us know tomorrow but wants a day to give it thought. 3: if platelets less then or equal to 10,000 would transfuse single unit donor plat pack. Adriel El MD Nov 26, 2016 20:07
[2016-11-26] MEDS: CEFEPIME INJ 2,000 MG in SODIUM CHLORIDE 0.9% INJ 100 ML IV SCH (21:21)
[2016-11-26] MEDS: LEVOFLOXACIN 500 MG TAB PO SCH (21:22)
[2016-11-26] MEDS: ATORVASTATIN 80 MG TAB PO SCH (21:22)
[2016-11-27] VITALS (9 sets, daily range): BP systolic 100–127; BP diastolic 55–73; PULSE 75–99; RESP 16–19; TEMP 96.8–100.2; O2SAT 95–99
[2016-11-27 04:28] LABS: MEAN CORPUSCULAR HGB CONC 36.2 % (32.0-36.0)
[2016-11-27] MEDS: MAGNESIUM HYDROXIDE SUSP 30 ML CUP PO PRN (05:16)
[2016-11-27] MEDS: CEFEPIME INJ 2,000 MG in SODIUM CHLORIDE 0.9% INJ 100 ML IV SCH ×3 (05:16→21:00)
[2016-11-27] MEDS: DOCUSATE SODIUM 100 MG CAP PO SCH ×2 (05:17→15:21)
[2016-11-27 05:40] LABS: HEMATOCRIT 21.5 % (39.0-51.0); MEAN CELL VOLUME 84.9 FL (80.0-100.0); MEAN CORPUSCULAR HEMOGLOBIN 30.7 PG (27.0-34.0); RED BLOOD COUNT 2.53 MIL/MM3 (4.50-5.90); RED CELL DISTRIBUTION WIDTH 14.9 % (11.6-17.2); WHITE BLOOD COUNT 1.8 TH/MM3 (4.0-11.0)
[2016-11-27 05:52] LABS: HEMO FLAGS AUTO DIFF
[2016-11-27 05:57] LABS: PLATELET COUNT 14 TH/MM3 (150-450)
--- NOTE | 2016-11-27 08:07 | PD.ONC.PN ---
Subjective Subjective Remarks feels better since antibiotics started. had incontinence of liquid stool this am. Objective Data Date Time Temp Pulse Resp B/P Pulse Ox O2 Delivery O2 Flow Rate FiO2 11/27/16 04:15 99.0 75 19 114/63 98 11/27/16 00:10 100.2 99 19 111/55 99 11/26/16 21:19 92 11/26/16 20:45 98.7 100 19 122/77 98 11/26/16 16:10 98.2 81 18 112/58 98 11/26/16 16:00 98.9 101 20 159/73 97 11/26/16 12:52 98.1 82 18 134/62 98 11/26/16 12:12 98.0 81 20 128/52 99 11/26/16 12:00 98.6 86 20 130/62 99 11/26/16 10:00 98.2 81 18 110/58 96 11/27/16 11/27/16 11/27/16 06:59 14:59 22:59 Intake Total 120 ml Output Total 300 ml Balance -180 ml Result Diagram: 11/27/16 0520 11/26/16 1615 Laboratory Results Laboratory Tests Test 11/26/16 11/27/16 16:15 05:20 White Blood Count 1.9 TH/MM3 1.8 TH/MM3 Red Blood Count 2.74 MIL/MM3 2.53 MIL/MM3 Hemoglobin 8.4 GM/DL 7.8 GM/DL Hematocrit 23.3 % 21.5 % Mean Corpuscular Volume 85.0 FL 84.9 FL Mean Corpuscular Hemoglobin 30.6 PG 30.7 PG Mean Corpuscular Hemoglobin 36.0 % 36.2 % Concent Red Cell Distribution Width 15.1 % 14.9 % Platelet Count 14 TH/MM3 14 TH/MM3 Mean Platelet Volume 7.9 FL 7.8 FL Neutrophils (%) (Auto) % % Lymphocytes (%) (Auto) % % Monocytes (%) (Auto) % % Eosinophils (%) (Auto) % % Basophils (%) (Auto) % % Neutrophils # (Auto) TH/MM3 TH/MM3 Lymphocytes # (Auto) TH/MM3 TH/MM3 Monocytes # (Auto) TH/MM3 TH/MM3 Eosinophils # (Auto) TH/MM3 TH/MM3 Basophils # (Auto) TH/MM3 TH/MM3 CBC Comment AUTO DIFF AUTO DIFF Differential Total Cells 100 Counted Neutrophils % (Manual) 2 % Lymphocytes % 52 % Monocytes % 5 % Neutrophils # (Manual) 0.0 TH/MM3 Nucleated Red Blood Cells 2 /100 WBC Differential Comment FINAL DIFF MANUAL Blastocytes 41 % Platelet Estimate RARE Platelet Morphology Comment NORMAL Sodium Level 136 MEQ/L Potassium Level 3.6 MEQ/L Chloride Level 102 MEQ/L Carbon Dioxide Level 25.1 MEQ/L Anion Gap 9 MEQ/L Blood Urea Nitrogen 17 MG/DL Creatinine 0.70 MG/DL Estimat Glomerular Filtration 110 ML/MIN Rate Random Glucose 100 MG/DL Calcium Level 7.7 MG/DL Culture Results Microbiology Date/Time Procedure Status Source Growth 11/25/16 16:00 Aerobic Blood Culture - Preliminary Resulted Blood Peripheral NO GROWTH IN 1 DAY 11/25/16 16:00 Anaerobic Blood Culture - Preliminary Resulted Blood Peripheral NO GROWTH IN 1 DAY 11/25/16 16:50 Aerobic Blood Culture - Preliminary Resulted Blood Peripheral NO GROWTH IN 1 DAY 11/25/16 16:50 Anaerobic Blood Culture - Preliminary Resulted Blood Peripheral NO GROWTH IN 1 DAY 11/26/16 21:50 Urine Culture Received Urine Clean Catch Pending Administered Medications Medications (Trade) Dose Ordered Sig/Catina Route PRN Reason Start Time Stop Time Status Last Admin Dose Admin Sodium Chloride (NS 1000 ml Inj) 1,000 ml @ 100 mls/hr Q10H IV 11/25/16 17:00 11/26/16 21:24 IV Flush (NS Flush) 2 ml BID FLUSH 11/25/16 21:00 11/26/16 21:23 Acetaminophen (Tylenol) 650 mg Q4H PRN PO TEMP > 100.4 11/25/16 17:00 11/26/16 12:04 Docusate Sodium (Colace) 100 mg Q12H PO 11/25/16 17:00 11/27/16 05:17 Magnesium Hydroxide (Milk Of Magnesia Liq) 30 ml Q12H PRN PO CONSTIPATION 11/25/16 17:00 11/27/16 05:16 Sennosides (Senokot) 17.2 mg Q12H PRN PO CONSTIPATION 11/25/16 17:00 11/27/16 05:17 Atorvastatin Calcium (Lipitor) 80 mg HS PO 11/25/16 21:00 11/26/16 21:22 Metoprolol Tartrate (Lopressor) 50 mg Q12HR PO 11/25/16 21:00 11/26/16 21:23 Levofloxacin 500 mg 500 mg Q24H PO 11/26/16 21:00 11/26/16 21:22 Cefepime HCl/ Sodium Chloride (Maxipime Inj/NS Inj) 100 ml @ 200 mls/hr Q8H IV 11/26/16 20:00 11/27/16 05:16 Objective Remarks GENERAL: frail SKIN: Warm and dry. HEAD: Normocephalic. EYES: No scleral icterus. No injection or drainage. NECK: Supple, trachea midline. No JVD or lymphadenopathy. LYMPHATIC: No adenopathy. CARDIOVASCULAR: Regular rate and rhythm without murmurs. RESPIRATORY: Breath sounds equal bilaterally. No accessory muscle use. GASTROINTESTINAL: Abdomen soft, non-tender, nondistended. EXTREMITIES: +1 edema MUSCULOSKELETAL: Adequate muscle tone. NEUROLOGICAL: No obvious focal deficit. Awake, alert, and oriented x3. PSYCHIATRIC: sad as life coming to a close. Assessment/Plan Assessment 1: discussed code status again this am and the fact that a successful resuscitation is remote occurring in face of AML at age 76. He has elected no CPR and orders entered. 2: cefepime started last night and temp is down and he feels better. would continue same 3: if platelets less then or equal to 10,000 would transfuse single unit donor plat pack or transfuse if any bleeding at current level 4: Dr. Conteh will be back early next week to address the possibility of additional treatment versus supportive care 5: will transfuse 1 unit of packed cells. Order placed. Adriel El MD Nov 27, 2016 08:07
[2016-11-27] MEDS: METOPROLOL TARTRATE 50 MG TAB PO SCH ×2 (08:26→20:59)
[2016-11-27] MEDS: SODIUM CHLORIDE 0.9% FLUSH 5 ML FLUSH FLUSH SCH ×2 (08:32→20:59)
[2016-11-27] MEDS: SODIUM CHLOR 0.9% 1000 ML INJ 1,000 ML IV SCH ×3 (09:00→20:59)
[2016-11-27 09:49] LABS: BLASTS 38 % (0-0); CORRECTED NUCLEATED RBC 1 /100 WBC (0-0); PLATELET ESTIMATE SMEAR RARE (NORMAL); PLATELET MORPHOLOGY NORMAL (NORMAL); POLYS (SEG NEUTROPHILS) 1 % (16-70); SCAN/DIFF FINAL DIFF MANUAL; WBC DIFF SAMPLE 100
[2016-11-27 11:49] LABS: C. DIFF EPI 027 PRESUMPTIVE NEGATIVE (NEGATIVE); C. DIFF TOXIN PCR NEGATIVE (NEGATIVE)
--- NOTE | 2016-11-27 13:15 | HHI.PR ---
Subjective Remarks No fever overnight, no chills no chest and or cough Reported to loose stool bowel movement Objective Vitals Vital Signs Date Time Temp Pulse Resp B/P Pulse Ox O2 Delivery O2 Flow Rate FiO2 11/27/16 12:00 96.8 81 18 100/58 95 11/27/16 11:55 98.4 76 19 120/67 98 11/27/16 11:40 96.8 81 18 100/58 95 11/27/16 08:00 98.1 75 18 125/71 96 11/27/16 04:15 99.0 75 19 114/63 98 11/27/16 00:10 100.2 99 19 111/55 99 11/26/16 21:19 92 11/26/16 20:45 98.7 100 19 122/77 98 11/26/16 16:10 98.2 81 18 112/58 98 11/26/16 16:00 98.9 101 20 159/73 97 I/O 11/26/16 11/26/16 11/26/16 11/27/16 11/27/16 11/27/16 07:00 15:00 23:00 07:00 15:00 23:00 Intake Total 480 ml 480 ml 240 ml 120 ml Output Total 600 ml 225 ml 100 ml 300 ml Balance -120 ml 255 ml 140 ml -180 ml Intake Oral 480 ml 480 ml 240 ml 120 ml Output Urine Total 600 ml 225 ml 100 ml 300 ml # Voids 1 # Bowel Movements 0 0 0 Result Diagram: 11/27/16 0520 11/26/16 1615 Objective Remarks GENERAL: This is a well-nourished, well-developed patient, in no apparent distress. SKIN: No rashes, warm and dry HEAD: Atraumatic. Normocephalic. EYES: Pupils equal round and reactive. Extraocular motions intact. No scleral icterus. ENT: Nose without bleeding, or drainage, Airway patent. NECK: Trachea midline. Supple CARDIOVASCULAR: Regular rate and rhythm without murmurs, gallops, or rubs. RESPIRATORY: Fair air entry bilaterally. No wheezes, rales, or rhonchi. GASTROINTESTINAL: Abdomen soft, non-tender, nondistended. Positive bowel sounds MUSCULOSKELETAL: Extremities without clubbing, cyanosis, or edema. Pedal pulses appreciated NEUROLOGICAL: Awake and alert. Moves all extremity. Normal speech.no focal neurological deficit A/P Assessment and Plan 76 years old male who was on chemotherapy came with Severe pancytopenia with (anemia, leukopenia, thrombocytopenia) hemoglobin of 3.8, WBC 1.5 platelet count 18 K, mostly bone marrow failure, ? 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 difficile Started on cefepime by oncology Hemoglobin dropped back to 7.6, extra units of packed red blood cells has been transfused ordered by oncology, Continue monitoring H&H every 6 hours, CBC daily Monitor blood culture medical oncology, following D/W Dr. El Transfuse 4 units of irradiated packed red blood cells, will try to stabilize hemoglobin at 10 Platelet transfusion , and Neupogen per oncology if platelets less than 10 K pain mangement with norco/morphine code status d/w pt and , patient selected DNR status. Start prophylaxis antibiotic and antifungal with Levaquin and Diflucan 1 dose 200 mg IVP, considering his pain with severe low neutrophils and history of neutropenia and odynophagia Appreciate infectious disease consultation for antibiotic recommendation, continue Levaquin switched to by mouth , oncology added cefepime later on due to fever 100.2 Patient need to see Dr. Conteh discussed with him Resume education from home meds Mee Pettit MD Nov 27, 2016 13:15
[2016-11-27] MEDS ORDERED: Vancomycin Consult Pharmacy 1 EA IV SCH (14:45)
[2016-11-27] MEDS: VANCOMYCIN INJ 1,750 MG in SODIUM CHLORID 0.9% 500 ML INJ 500 ML IV SCH (17:53)
--- NOTE | 2016-11-27 20:47 | HHI.IDPN ---
Subjective Subjective Remarks feeels better yday had low grade fever seen by Dr Del Cid pt was started on cefepime for suspected neutropenic fever BC today GPC in 1 bottle co lower back/buttock pain Antibiotics cefepime vanco added 11/27 Allergies: Coded Allergies: No Known Allergies (Unverified , 11/25/16) Objective . Vital Signs Date Time Temp Pulse Resp B/P Pulse Ox O2 Delivery O2 Flow Rate FiO2 11/27/16 16:00 98.8 90 19 118/73 99 11/27/16 15:20 99.0 80 18 127/62 99 11/27/16 12:00 96.8 81 18 100/58 95 11/27/16 11:55 98.4 76 19 120/67 98 11/27/16 11:40 96.8 81 18 100/58 95 11/27/16 08:00 98.1 75 18 125/71 96 11/27/16 04:15 99.0 75 19 114/63 98 11/27/16 00:10 100.2 99 19 111/55 99 11/26/16 21:19 92 11/26/16 20:45 98.7 100 19 122/77 98 11/26/16 11/26/16 11/27/16 15:00 23:00 07:00 Intake Total 480 ml 240 ml 120 ml Output Total 225 ml 100 ml 300 ml Balance 255 ml 140 ml -180 ml Intake Oral 480 ml 240 ml 120 ml Output Urine Total 225 ml 100 ml 300 ml # Voids 1 # Bowel Movements 0 0 0 . Laboratory Tests Test 11/26/16 11/26/16 11/27/16 00:24 16:15 05:20 Hemoglobin 4.9 GM/DL 8.4 GM/DL 7.8 GM/DL Hematocrit 14.1 % 23.3 % 21.5 % White Blood Count 1.9 TH/MM3 1.8 TH/MM3 Red Blood Count 2.74 MIL/MM3 2.53 MIL/MM3 Mean Corpuscular Volume 85.0 FL 84.9 FL Mean Corpuscular Hemoglobin 30.6 PG 30.7 PG Mean Corpuscular Hemoglobin 36.0 % 36.2 % Concent Red Cell Distribution Width 15.1 % 14.9 % Platelet Count 14 TH/MM3 14 TH/MM3 Mean Platelet Volume 7.9 FL 7.8 FL Neutrophils (%) (Auto) % % Lymphocytes (%) (Auto) % % Monocytes (%) (Auto) % % Eosinophils (%) (Auto) % % Basophils (%) (Auto) % % Neutrophils # (Auto) TH/MM3 TH/MM3 Lymphocytes # (Auto) TH/MM3 TH/MM3 Monocytes # (Auto) TH/MM3 TH/MM3 Eosinophils # (Auto) TH/MM3 TH/MM3 Basophils # (Auto) TH/MM3 TH/MM3 CBC Comment AUTO DIFF AUTO DIFF Differential Total Cells 100 100 Counted Neutrophils % (Manual) 2 % 1 % Lymphocytes % 52 % 59 % Monocytes % 5 % 2 % Neutrophils # (Manual) 0.0 TH/MM3 0.0 TH/MM3 Nucleated Red Blood Cells 2 /100 WBC 1 /100 WBC Differential Comment FINAL DIFF FINAL DIFF MANUAL MANUAL Blastocytes 41 % 38 % Platelet Estimate RARE RARE Platelet Morphology Comment NORMAL NORMAL Laboratory Tests Test 11/26/16 16:15 Sodium Level 136 MEQ/L Potassium Level 3.6 MEQ/L Chloride Level 102 MEQ/L Carbon Dioxide Level 25.1 MEQ/L Anion Gap 9 MEQ/L Blood Urea Nitrogen 17 MG/DL Creatinine 0.70 MG/DL Estimat Glomerular Filtration 110 ML/MIN Rate Random Glucose 100 MG/DL Calcium Level 7.7 MG/DL Microbiology Date/Time Procedure Status Source Growth 11/25/16 16:00 Aerobic Blood Culture - Preliminary Resulted Blood Peripheral NO GROWTH IN 2 DAYS 11/25/16 16:00 Anaerobic Blood Culture - Preliminary Resulted Blood Peripheral NO GROWTH IN 2 DAYS 11/25/16 16:50 Aerobic Blood Culture - Preliminary Resulted Blood Peripheral NO GROWTH IN 2 DAYS 11/25/16 16:50 Anaerobic Blood Culture - Preliminary Resulted Gram Positive Cocci 11/26/16 21:50 Urine Culture - Preliminary Resulted Urine Clean Catch RESULTS PENDING Imaging Last Impressions Chest X-Ray 11/25/16 0000 Signed Impressions: Service Date/Time: Friday, November 25, 2016 15:01 - CONCLUSION: No acute disease. No significant change has occurred. Brendan Chow MD Physical Exam CONSTITUTIONAL/GENERAL: This is a well nourished patient, in no apparent distress. OOB in chait TUBES/LINES/DRAINS: PORT in place R chest - looks OK SKIN: No jaundice, rashes, or lesions. . Skin temperature appropriate. Not diaphoretic. EYES: Pupils equal and round and reactive. Extraocular motions intact. No scleral icterus. No injection or drainage. Fundi not examined. ENT: Hearing grossly normal. Oral mucosae w/o thrush or lesions Dentition is poor CARDIOVASCULAR: Regular rate and rhythm without murmurs, gallops, or rubs. No JVD. Peripheral pulses symmetric. RESPIRATORY/CHEST: Symmetric, unlabored respirations. Clear to auscultation. Breath sounds equal bilaterally. No wheezes, rales, or rhonchi. GASTROINTESTINAL: Abdomen soft, non-tender, nondistended. No hepato-splenomegaly , or palpable masses. No guarding. Bowel sounds present. GENITOURINARY: Without palpable bladder distension MUSCULOSKELETAL: Extremities without clubbing, cyanosis, trace BLE edema. No joint tenderness or effusion noted. No calf tenderness. No mottling or clubbing. NEUROLOGICAL: Awake and alert. Motor and sensory grossly within normal limits. Follows commands. Normal speech Moves all extremities. PSYCHIATRIC: No obvious anxiety/depression. no apparent hallucinations or other psychotic thought process. 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 UTI vs hematuria Febrile neutropenic GPC bacteremia - low grade, ID P - cont cefepime - cont vancomycin - fu urine clx -monitor clincially - fu blood clx untill final Discussed Condition With Dr Maria Eugenia Henriquez,Teresa Baker MD Nov 27, 2016 20:47
[2016-11-27] MEDS: ATORVASTATIN 80 MG TAB PO SCH (20:59)
[2016-11-27] MEDS: LEVOFLOXACIN 500 MG TAB PO SCH (20:59)
[2016-11-28] VITALS (7 sets, daily range): BP systolic 108–126; BP diastolic 58–75; PULSE 83–89; RESP 16–18; TEMP 97.3–99.2; O2SAT 95–99
[2016-11-28] MEDS: CEFEPIME INJ 2,000 MG in SODIUM CHLORIDE 0.9% INJ 100 ML IV SCH ×3 (04:48→20:42)
[2016-11-28] MEDS: DOCUSATE SODIUM 100 MG CAP PO SCH ×2 (05:00→17:00)
[2016-11-28 06:44] LABS: HEMATOCRIT 25.9 % (39.0-51.0); MEAN CELL VOLUME 85.6 FL (80.0-100.0); MEAN CORPUSCULAR HEMOGLOBIN 30.6 PG (27.0-34.0); MEAN CORPUSCULAR HGB CONC 35.7 % (32.0-36.0); RED BLOOD COUNT 3.02 MIL/MM3 (4.50-5.90); RED CELL DISTRIBUTION WIDTH 15.1 % (11.6-17.2); WHITE BLOOD COUNT 2.1 TH/MM3 (4.0-11.0)
[2016-11-28 07:21] LABS: HEMO FLAGS AUTO DIFF
[2016-11-28 07:22] LABS: PLATELET COUNT 11 TH/MM3 (150-450)
[2016-11-28 07:29] LABS: ALT (GPT) 44 U/L (12-78); ANION GAP 10 MEQ/L (5-15); AST (GOT) 28 U/L (15-37); BICARBONATE 23.6 MEQ/L (21.0-32.0); BLOOD UREA NITROGEN 14 MG/DL (7-18); CHLORIDE 104 MEQ/L (98-107); GLOMERULAR FILTRATION RATE 108 ML/MIN (>89); POTASSIUM 3.4 MEQ/L (3.5-5.1); SODIUM (NA) 138 MEQ/L (136-145)
[2016-11-28 07:31] LABS: ALKALINE PHOSPHATASE 108 U/L (45-117); TOTAL BILIRUBIN ADULT 1.1 MG/DL (0.2-1.0)
[2016-11-28] MEDS: METOPROLOL TARTRATE 50 MG TAB PO SCH ×2 (08:45→21:00)
[2016-11-28] MEDS: SODIUM CHLORIDE 0.9% FLUSH 5 ML FLUSH FLUSH SCH ×2 (08:45→20:42)
--- NOTE | 2016-11-28 10:03 | HHI.PR ---
Subjective Remarks Follow up on severe life-threatening pancytopenia, patient with possible AML, status post chemotherapy, developed low-grade fever started on IVs cefepime and Vanco with Levaquin, ID and oncology on board Patient laying in bed, he woke up to voice Denied chest pain cough short of breath, odynophagia, fever or chills or diarrhea His hemoglobin improved today however his platelets dropped to 11,000 Recommendation is to transfuse platelets if less than 10,000 The plan is to stabilize patient, then for him to discuss with Dr. Conteh when he [facility] Objective Vitals Vital Signs Date Time Temp Pulse Resp B/P Pulse Ox O2 Delivery O2 Flow Rate FiO2 11/28/16 08:00 98.1 83 18 126/66 96 11/28/16 04:00 98.9 89 17 108/58 95 11/28/16 00:00 98.9 86 16 114/61 98 11/27/16 20:00 98.1 93 16 118/68 97 11/27/16 16:00 98.8 90 19 118/73 99 11/27/16 15:20 99.0 80 18 127/62 99 11/27/16 12:00 96.8 81 18 100/58 95 11/27/16 11:55 98.4 76 19 120/67 98 11/27/16 11:40 96.8 81 18 100/58 95 I/O 11/27/16 11/27/16 11/27/16 11/28/16 11/28/16 11/28/16 07:00 15:00 23:00 07:00 15:00 23:00 Intake Total 120 ml 720 ml 240 ml 360 ml Output Total 300 ml 300 ml Balance -180 ml 720 ml 240 ml 60 ml Intake Oral 120 ml 720 ml 240 ml 360 ml Output Urine Total 300 ml 300 ml # Voids 1 6 1 # Bowel Movements 0 2 1 0 Result Diagram: 11/28/16 0600 11/28/16 0600 Objective Remarks GENERAL: This is a well-nourished, well-developed patient, in no apparent distress. SKIN: No rashes, warm and dry HEAD: Atraumatic. Normocephalic. EYES: Pupils equal round and reactive. Extraocular motions intact. No scleral icterus. ENT: Nose without bleeding, or drainage, Airway patent. NECK: Trachea midline. Supple CARDIOVASCULAR: Regular rate and rhythm without murmurs, gallops, or rubs. RESPIRATORY: Fair air entry bilaterally. No wheezes, rales, or rhonchi. GASTROINTESTINAL: Abdomen soft, non-tender, nondistended. Positive bowel sounds MUSCULOSKELETAL: Extremities without clubbing, cyanosis, or edema. Pedal pulses appreciated NEUROLOGICAL: Awake and alert. Moves all extremity. Normal speech.no focal neurological deficit A/P Assessment and Plan 76 years old male who was on chemotherapy came with Severe pancytopenia with (anemia, leukopenia, thrombocytopenia) hemoglobin of 3.8, WBC 1.5 platelet count 18 K, mostly bone marrow failure, ? AML Severe anemia with hemoglobin of 3.8 Low-grade fever 100.2 Blood culture with 1 tube + gram-positive cocci Suspect diarrhea, 2 loose stool bowel movement>> improved, C. 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 difficile Hemoglobin improved to 9.2 today, platelets 11,000 him a WBC 2.1 Continue monitoring H&H every 6 hours, CBC daily Continue Monitor blood culture medical oncology, following D/W Dr. El Status post Transfuse 4 units of irradiated packed red blood cells, will try to stabilize hemoglobin at 10 Platelet transfusion , and Neupogen per oncology if platelets less than 10 K pain mangement with norco/morphine code status d/w pt and , patient selected DNR status. Appreciate infectious disease consultation for antibiotic recommendation Patient need to see Dr. Conteh discussed with him Resume education from [facility] Mee Pettit MD Nov 28, 2016 10:03
[2016-11-28 11:15] LABS: BLASTS 62 % (0-0); EOSINOPHILS 1 % (0-4); PLATELET ESTIMATE SMEAR RARE (NORMAL); PLATELET MORPHOLOGY NORMAL (NORMAL); SCAN/DIFF FINAL DIFF MANUAL; WBC DIFF SAMPLE 100
[2016-11-28] MEDS: VANCOMYCIN INJ 1,750 MG in SODIUM CHLORID 0.9% 500 ML INJ 500 ML IV SCH (12:35)
[2016-11-28] MEDS: MAGNESIUM HYDROXIDE SUSP 30 ML CUP PO PRN (12:43)
--- NOTE | 2016-11-28 14:44 | PD.ONC.PN ---
Subjective Subjective Remarks Afebrile overnight. Pt states he feels "great" today. He has no SOB or pain. He has not noticed any bleeding. Objective Data Date Time Temp Pulse Resp B/P Pulse Ox O2 Delivery O2 Flow Rate FiO2 11/28/16 13:06 89 11/28/16 12:00 99.2 86 18 111/75 96 11/28/16 08:00 98.1 83 18 126/66 96 11/28/16 04:00 98.9 89 17 108/58 95 11/28/16 00:00 98.9 86 16 114/61 98 11/27/16 20:00 98.1 93 16 118/68 97 11/27/16 16:00 98.8 90 19 118/73 99 11/27/16 15:20 99.0 80 18 127/62 99 11/28/16 11/28/16 11/28/16 07:00 15:00 23:00 Intake Total 360 ml Output Total 300 ml Balance 60 ml Result Diagram: 11/28/16 0600 11/28/16 0600 Laboratory Results Laboratory Tests Test 11/28/16 06:00 White Blood Count 2.1 TH/MM3 Red Blood Count 3.02 MIL/MM3 Hemoglobin 9.2 GM/DL Hematocrit 25.9 % Mean Corpuscular Volume 85.6 FL Mean Corpuscular Hemoglobin 30.6 PG Mean Corpuscular Hemoglobin 35.7 % Concent Red Cell Distribution Width 15.1 % Platelet Count 11 TH/MM3 Mean Platelet Volume 7.9 FL Neutrophils (%) (Auto) % Lymphocytes (%) (Auto) % Monocytes (%) (Auto) % Eosinophils (%) (Auto) % Basophils (%) (Auto) % Neutrophils # (Auto) TH/MM3 Lymphocytes # (Auto) TH/MM3 Monocytes # (Auto) TH/MM3 Eosinophils # (Auto) TH/MM3 Basophils # (Auto) TH/MM3 CBC Comment AUTO DIFF Differential Total Cells 100 Counted Lymphocytes % 35 % Monocytes % 2 % Eosinophils % 1 % Neutrophils # (Manual) 0.0 TH/MM3 Differential Comment FINAL DIFF MANUAL Blastocytes 62 % Platelet Estimate RARE Platelet Morphology Comment NORMAL Red Cell Morphology Comment NORMAL Sodium Level 138 MEQ/L Potassium Level 3.4 MEQ/L Chloride Level 104 MEQ/L Carbon Dioxide Level 23.6 MEQ/L Anion Gap 10 MEQ/L Blood Urea Nitrogen 14 MG/DL Creatinine 0.71 MG/DL Estimat Glomerular Filtration 108 ML/MIN Rate Random Glucose 106 MG/DL Calcium Level 7.6 MG/DL Total Bilirubin 1.1 MG/DL Aspartate Amino Transf 28 U/L (AST/SGOT) Alanine Aminotransferase 44 U/L (ALT/SGPT) Alkaline Phosphatase 108 U/L Total Protein 6.3 GM/DL Albumin 1.7 GM/DL Culture Results Microbiology Date/Time Procedure Status Source Growth 11/25/16 16:00 Aerobic Blood Culture - Preliminary Resulted Blood Peripheral NO GROWTH IN 3 DAYS 11/25/16 16:00 Anaerobic Blood Culture - Preliminary Resulted Blood Peripheral NO GROWTH IN 3 DAYS 11/25/16 16:50 Aerobic Blood Culture - Preliminary Resulted Blood Peripheral NO GROWTH IN 3 DAYS 11/25/16 16:50 Anaerobic Blood Culture - Final Resulted Staph Sp Coagulase Negative 11/26/16 21:50 Urine Culture - Final Complete Urine Clean Catch NO GROWTH IN 48 HOURS. Administered Medications Medications (Trade) Dose Ordered Sig/Catina Route PRN Reason Start Time Stop Time Status Last Admin Dose Admin Sodium Chloride (NS 1000 ml Inj) 1,000 ml @ 100 mls/hr Q10H IV 11/25/16 17:00 11/26/16 21:24 IV Flush (NS Flush) 2 ml BID FLUSH 11/25/16 21:00 11/28/16 08:45 Acetaminophen (Tylenol) 650 mg Q4H PRN PO TEMP > 100.4 11/25/16 17:00 11/26/16 12:04 Docusate Sodium (Colace) 100 mg Q12H PO 11/25/16 17:00 11/27/16 15:21 Magnesium Hydroxide (Milk Of Magnesia Liq) 30 ml Q12H PRN PO CONSTIPATION 11/25/16 17:00 11/28/16 12:43 Sennosides (Senokot) 17.2 mg Q12H PRN PO CONSTIPATION 11/25/16 17:00 11/27/16 05:17 Atorvastatin Calcium (Lipitor) 80 mg HS PO 11/25/16 21:00 11/27/16 20:59 Metoprolol Tartrate (Lopressor) 50 mg Q12HR PO 11/25/16 21:00 11/28/16 08:45 Levofloxacin 500 mg 500 mg Q24H PO 11/26/16 21:00 11/27/16 20:59 Cefepime HCl 2000 mg/Sodium Chloride 100 ml @ 200 mls/hr Q8H IV 11/26/16 20:00 11/28/16 12:35 Vancomycin HCl/ Sodium Chloride (Vancomycin Inj/ NS 500 ml Inj) 517.5 ml @ 250 mls/hr Q18H IV 11/27/16 18:00 11/28/16 12:35 Objective Remarks GENERAL: Very pleasant older male, sitting up in chair at bedside. SKIN: Warm and dry. No oozing from lines. HEAD: Normocephalic. EYES: No injection or drainage. NECK: Supple, trachea midline. CARDIOVASCULAR: +S1/S2. RESPIRATORY: Lungs clear. Breathing easy and unlabored. GASTROINTESTINAL: Abdomen soft, non-tender, nondistended. EXTREMITIES: No cyanosis, or edema. NEUROLOGICAL: No obvious focal deficit. Awake, alert, and oriented x3. 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 (2) Pancytopenia Status: Acute Plan: Transfuse to keep platelets greater than 10K, Hgb greater than 7. (3) Severe neutropenia Status: Acute Plan: 11/28/16: Neutrophil count 0.0 today. Continue neutropenic precautions. -- BC on 11/26 show staph coag neg. -- ID following. 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 Plan 1: No transfusion today. Recheck CBC in am. 2: Continue antibiotics. 3. Tranfuse to keep Hgb greater than 7 and platelets greater than 10k. 4. Supportive care. Attending Statement The exam, history, and the medical decision-making described in the above note were completed with the assistance of the mid-level provider. I reviewed and agree with the findings presented. I attest that I had a [id number] encounter with the patient on the same day, and personally performed and documented my assessment and findings in the medical record. No bleeding reported. Platelet counts trending down slowly. Continue to monitor CBC and transfuse prn. Cristina Hernandez Nov 28, 2016 14:44 Maximino Low MD Nov 28, 2016 14:49
[2016-11-28] MEDS: SODIUM CHLOR 0.9% 1000 ML INJ 1,000 ML IV SCH (15:00)
[2016-11-28] MEDS: ATORVASTATIN 80 MG TAB PO SCH (22:10)
[2016-11-28] MEDS: LEVOFLOXACIN 500 MG TAB PO SCH (22:10)
[2016-11-29] VITALS (8 sets, daily range): BP systolic 121–146; BP diastolic 62–71; PULSE 82–94; RESP 16–19; TEMP 98.2–100.2; O2SAT 96–100
[2016-11-29] MEDS: CEFEPIME INJ 2,000 MG in SODIUM CHLORIDE 0.9% INJ 100 ML IV SCH ×3 (04:00→21:11)
[2016-11-29] MEDS: DOCUSATE SODIUM 100 MG CAP PO SCH ×3 (05:00→15:46)
[2016-11-29] MEDS: VANCOMYCIN INJ 1,750 MG in SODIUM CHLORID 0.9% 500 ML INJ 500 ML IV SCH (05:49)
[2016-11-29] MEDS: SODIUM CHLOR 0.9% 1000 ML INJ 1,000 ML IV SCH ×2 (05:50→10:18)
[2016-11-29 07:40] LABS: HEMATOCRIT 25.7 % (39.0-51.0); MEAN CELL VOLUME 87.3 FL (80.0-100.0); MEAN CORPUSCULAR HGB CONC 34.3 % (32.0-36.0); RED BLOOD COUNT 2.95 MIL/MM3 (4.50-5.90); RED CELL DISTRIBUTION WIDTH 14.9 % (11.6-17.2); WHITE BLOOD COUNT 2.2 TH/MM3 (4.0-11.0)
[2016-11-29 07:47] LABS: HEMO FLAGS AUTO DIFF
[2016-11-29 07:51] LABS: PLATELET COUNT 7 TH/MM3 (150-450)
[2016-11-29] MEDS: METOPROLOL TARTRATE 50 MG TAB PO SCH ×2 (10:18→21:12)
[2016-11-29] MEDS: SODIUM CHLORIDE 0.9% FLUSH 5 ML FLUSH FLUSH SCH ×2 (10:18→21:12)
[2016-11-29 10:45] LABS: BLASTS 56 % (0-0); PLATELET ESTIMATE SMEAR RARE (NORMAL); POLYS (SEG NEUTROPHILS) 2 % (16-70); WBC DIFF SAMPLE 100
[2016-11-29] MEDS ORDERED: SODIUM CHLOR 0.9% 250 ML INJ 250 ML IV ONE (10:45)
[2016-11-29 10:46] LABS: PLATELET MORPHOLOGY NORMAL (NORMAL); SCAN/DIFF FINAL DIFF MANUAL
--- NOTE | 2016-11-29 11:24 | PD.ONC.PN ---
Subjective Subjective Remarks Tmax 100.0 overnight. Pt doing well with no complaints. He denies SOB or chest pain. Denies bleeding. Objective Data Date Time Temp Pulse Resp B/P Pulse Ox O2 Delivery O2 Flow Rate FiO2 11/29/16 08:16 98.2 88 18 121/71 98 11/29/16 04:30 99.8 89 17 128/67 96 11/29/16 00:00 100.2 94 16 131/65 98 11/28/16 20:00 98.7 89 16 123/65 99 11/28/16 16:00 97.3 87 18 124/67 95 11/28/16 13:06 89 11/28/16 12:00 99.2 86 18 111/75 96 11/29/16 11/29/16 11/29/16 07:00 15:00 23:00 Intake Total 480 ml Output Total 150 ml Balance 330 ml Result Diagram: 11/29/16 0710 11/28/16 0600 Laboratory Results Laboratory Tests Test 11/29/16 07:10 White Blood Count 2.2 TH/MM3 Red Blood Count 2.95 MIL/MM3 Hemoglobin 8.8 GM/DL Hematocrit 25.7 % Mean Corpuscular Volume 87.3 FL Mean Corpuscular Hemoglobin 30.0 PG Mean Corpuscular Hemoglobin 34.3 % Concent Red Cell Distribution Width 14.9 % Platelet Count 7 TH/MM3 Mean Platelet Volume 10.2 FL Neutrophils (%) (Auto) % Lymphocytes (%) (Auto) % Monocytes (%) (Auto) % Eosinophils (%) (Auto) % Basophils (%) (Auto) % Neutrophils # (Auto) TH/MM3 Lymphocytes # (Auto) TH/MM3 Monocytes # (Auto) TH/MM3 Eosinophils # (Auto) TH/MM3 Basophils # (Auto) TH/MM3 CBC Comment AUTO DIFF Differential Total Cells 100 Counted Neutrophils % (Manual) 2 % Lymphocytes % 38 % Monocytes % 4 % Neutrophils # (Manual) 0.0 TH/MM3 Differential Comment FINAL DIFF MANUAL Blastocytes 56 % Platelet Estimate RARE Platelet Morphology Comment NORMAL Red Cell Morphology Comment NORMAL Culture Results Microbiology Date/Time Procedure Status Source Growth 11/26/16 21:50 Urine Culture - Final Complete Urine Clean Catch NO GROWTH IN 48 HOURS. Administered Medications Medications (Trade) Dose Ordered Sig/Catina Route PRN Reason Start Time Stop Time Status Last Admin Dose Admin Sodium Chloride (NS 1000 ml Inj) 1,000 ml @ 100 mls/hr Q10H IV 11/25/16 17:00 11/29/16 05:50 IV Flush (NS Flush) 2 ml BID FLUSH 11/25/16 21:00 11/29/16 10:18 Acetaminophen (Tylenol) 650 mg Q4H PRN PO TEMP > 100.4 11/25/16 17:00 11/26/16 12:04 Docusate Sodium (Colace) 100 mg Q12H PO 11/25/16 17:00 11/27/16 15:21 Magnesium Hydroxide (Milk Of Magnrainer Liphuc) 30 ml Q12H PRN PO CONSTIPATION 11/25/16 17:00 11/28/16 12:43 Sennosides (Senokot) 17.2 mg Q12H PRN PO CONSTIPATION 11/25/16 17:00 11/27/16 05:17 Atorvastatin Calcium (Lipitor) 80 mg HS PO 11/25/16 21:00 11/28/16 22:10 Metoprolol Tartrate (Lopressor) 50 mg Q12HR PO 11/25/16 21:00 11/29/16 10:18 Levofloxacin 500 mg 500 mg Q24H PO 11/26/16 21:00 11/28/16 22:10 Cefepime HCl 2000 mg/Sodium Chloride 100 ml @ 200 mls/hr Q8H IV 11/26/16 20:00 11/29/16 04:00 Vancomycin HCl/ Sodium Chloride (Vancomycin Inj/ NS 500 ml Inj) 517.5 ml @ 250 mls/hr Q18H IV 11/27/16 18:00 11/29/16 05:49 Objective Remarks GENERAL: Older male, lying in bed in no distress. SKIN: Warm and dry. HEAD: Normocephalic. EYES: No injection or drainage. NECK: Supple, trachea midline. CARDIOVASCULAR: +S1/S2. RESPIRATORY: Lungs clear, diminished in the bases. GASTROINTESTINAL: +BS. Abdomen non tender. EXTREMITIES: No cyanosis, or edema. NEUROLOGICAL: No obvious focal deficit. Awake, alert, and oriented x3. 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 (2) Pancytopenia Status: Acute Plan: 11/29/16: Platelets 7K today. Will transfuse 1 unit irradiated platelets. -- Transfuse to keep platelets greater than 10K, Hgb greater than 7. -- No bleeding. (3) Severe neutropenia Status: Acute Plan: 11/28/16: Neutrophil count 0.0 today. Continue neutropenic precautions. -- BC on 11/26 show staph coag neg. -- ID following. 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 Plan 1: Transfuse 1 unit irradiated platelets today. 2: Continue antibiotics, neutropenic precautions. 3. Continue to monitor CBC and tranfuse to keep Hgb greater than 7 and platelets greater than 10k. 4. Supportive care. Attending Statement The exam, history, and the medical decision-making described in the above note were completed with the assistance of the mid-level provider. I reviewed and agree with the findings presented. I attest that I had a [id number] encounter with the patient on the same day, and personally performed and documented my assessment and findings in the medical record. Feeling tired today. No bleeding. Platelet trended lower. Transfuse platelet today and monitor CBC. Cristina Hernandez Nov 29, 2016 11:24 Maximino Low MD Nov 29, 2016 11:43
--- NOTE | 2016-11-29 13:48 | HHI.PR ---
Subjective Remarks Patient seen today in follow-up for AML and weakness. Patient with some worsening pancytopenia today and low-grade temperature. No events on telemetry. Care plan discussed with Waylon LU. Objective Vitals Vital Signs Date Time Temp Pulse Resp B/P Pulse Ox O2 Delivery O2 Flow Rate FiO2 11/29/16 12:25 98.6 82 19 127/62 100 11/29/16 08:16 98.2 88 18 121/71 98 11/29/16 04:30 99.8 89 17 128/67 96 11/29/16 00:00 100.2 94 16 131/65 98 11/28/16 20:00 98.7 89 16 123/65 99 11/28/16 16:00 97.3 87 18 124/67 95 I/O 11/28/16 11/28/16 11/28/16 11/29/16 11/29/16 11/29/16 07:00 15:00 23:00 07:00 15:00 23:00 Intake Total 360 ml 600 ml 960 ml 480 ml Output Total 300 ml 150 ml Balance 60 ml 600 ml 960 ml 330 ml Intake Oral 360 ml 600 ml 960 ml 480 ml Output Urine Total 300 ml 150 ml # Voids 5 6 # Bowel Movements 0 1 2 0 Result Diagram: 11/29/16 0710 11/28/16 0600 Objective Remarks GENERAL: This is a frail, well-developed patient, feels weak CARDIOVASCULAR: Regular rate and rhythm without murmurs, gallops, or rubs. RESPIRATORY: Clear to auscultation. Breath sounds equal bilaterally. No wheezes , rales, or rhonchi. GASTROINTESTINAL: Abdomen soft, non-tender, nondistended. Normal active bowel sounds MUSCULOSKELETAL: Extremities without clubbing, cyanosis, +3 edema NEURO: Alert & Oriented x4 to person, place, time, situation. Moves all ext x4 A/P Problem List: (1) Pancytopenia ICD Code: D61.818 Status: Acute Plan: Continue cefepime and vancomycin for neutropenia with low-grade temperature. blood Cultures on 11/26 show staph coag neg. at this time repeat pending (2) AML (acute myeloblastic leukemia) ICD Code: C92.00 Status: Acute Plan: plt 7K, transfuse per oncology outpatient Vidiza (3) Severe neutropenia ICD Code: D70.9 Status: Acute Plan: 100.2 Tmax Assessment and Plan d/c telem D/C IVF Julianna Gee MD Nov 29, 2016 13:48
[2016-11-29 19:58] LABS: HEMATOCRIT 28.2 % (39.0-51.0); MEAN CELL VOLUME 87.7 FL (80.0-100.0); MEAN CORPUSCULAR HEMOGLOBIN 30.3 PG (27.0-34.0); MEAN CORPUSCULAR HGB CONC 34.6 % (32.0-36.0); PLATELET COUNT 30 TH/MM3 (150-450); RED BLOOD COUNT 3.22 MIL/MM3 (4.50-5.90); RED CELL DISTRIBUTION WIDTH 15.2 % (11.6-17.2); WHITE BLOOD COUNT 2.7 TH/MM3 (4.0-11.0)
[2016-11-29 20:05] LABS: HEMO FLAGS AUTO DIFF
[2016-11-29 21:04] LABS: BLASTS 68 % (0-0); CORRECTED NUCLEATED RBC 1 /100 WBC (0-0); MYELOCYTES 1 % (0-0); NEUTROPHIL # MANUAL DIFF 0.1 TH/MM3 (1.8-7.7); POLYS (SEG NEUTROPHILS) 1 % (16-70); WBC DIFF SAMPLE 100
[2016-11-29 21:06] LABS: PLATELET ESTIMATE SMEAR LOW (NORMAL); PLATELET MORPHOLOGY NORMAL (NORMAL); SCAN/DIFF FINAL DIFF MANUAL
[2016-11-29] MEDS: ATORVASTATIN 80 MG TAB PO SCH (21:12)
[2016-11-29] MEDS: LEVOFLOXACIN 500 MG TAB PO SCH (21:12)
[2016-11-29] MEDS ORDERED: PHARMACY ORDERED LAB XX ONE (23:45)
[2016-11-30] VITALS: BP 149/70; PULSE 90; RESP 18; TEMP 99.9; O2SAT 93
[2016-11-30] MEDS: VANCOMYCIN INJ 1,750 MG in SODIUM CHLORID 0.9% 500 ML INJ 500 ML IV SCH (01:43)
[2016-11-30 04:00] VITALS: BP 115/62; PULSE 79; RESP 17; TEMP 99.2; O2SAT 96
[2016-11-30] MEDS: CEFEPIME INJ 2,000 MG in SODIUM CHLORIDE 0.9% INJ 100 ML IV SCH ×3 (04:00→20:20)
[2016-11-30] MEDS: DOCUSATE SODIUM 100 MG CAP PO SCH ×2 (05:00→17:48)
[2016-11-30 08:00] VITALS: BP 115/58; PULSE 88; RESP 18; TEMP 97.5; O2SAT 98
[2016-11-30] MEDS: SODIUM CHLORIDE 0.9% FLUSH 5 ML FLUSH FLUSH SCH ×2 (08:59→20:20)
[2016-11-30] MEDS: METOPROLOL TARTRATE 50 MG TAB PO SCH ×2 (08:59→20:20)
[2016-11-30 09:14] LABS: BICARBONATE 26.3 MEQ/L (21.0-32.0); MAGNESIUM 2.2 MG/DL (1.5-2.5); POTASSIUM 3.2 MEQ/L (3.5-5.1)
[2016-11-30 09:27] LABS: CALCIUM-PROTEIN CORRECTED 7.5 MG/DL (8.5-10.1)
[2016-11-30] MEDS: VANCOMYCIN INJ 1,250 MG in SODIUM CHLOR 0.9% 250 ML INJ 250 ML IV SCH ×2 (10:11→20:20)
--- NOTE | 2016-11-30 11:23 | PD.ONC.PN ---
Subjective Subjective Remarks Feeling better. No bleeding. No CP/SOB. Objective Data Date Time Temp Pulse Resp B/P Pulse Ox O2 Delivery O2 Flow Rate FiO2 11/30/16 08:00 97.5 88 18 115/58 98 11/30/16 04:00 99.2 79 17 115/62 96 11/30/16 00:00 99.9 90 18 149/70 93 11/29/16 20:00 99.5 91 17 141/70 98 11/29/16 17:50 98.2 88 18 146/65 97 11/29/16 16:00 99.4 82 18 139/69 98 11/29/16 14:30 98.6 85 17 128/69 100 11/29/16 12:25 98.6 82 19 127/62 100 11/30/16 11/30/16 11/30/16 07:00 15:00 23:00 Intake Total 240 ml Balance 240 ml Result Diagram: 11/29/16 1930 11/30/16 0725 Laboratory Results Laboratory Tests Test 11/29/16 11/30/16 11/30/16 19:30 01:30 07:25 White Blood Count 2.7 TH/MM3 Red Blood Count 3.22 MIL/MM3 Hemoglobin 9.7 GM/DL Hematocrit 28.2 % Mean Corpuscular Volume 87.7 FL Mean Corpuscular Hemoglobin 30.3 PG Mean Corpuscular Hemoglobin 34.6 % Concent Red Cell Distribution Width 15.2 % Platelet Count 30 TH/MM3 Mean Platelet Volume 7.3 FL Neutrophils (%) (Auto) % Lymphocytes (%) (Auto) % Monocytes (%) (Auto) % Eosinophils (%) (Auto) % Basophils (%) (Auto) % Neutrophils # (Auto) TH/MM3 Lymphocytes # (Auto) TH/MM3 Monocytes # (Auto) TH/MM3 Eosinophils # (Auto) TH/MM3 Basophils # (Auto) TH/MM3 CBC Comment AUTO DIFF Differential Total Cells 100 Counted Neutrophils % (Manual) 1 % Lymphocytes % 30 % Neutrophils # (Manual) 0.1 TH/MM3 Myelocytes 1 % Nucleated Red Blood Cells 1 /100 WBC Differential Comment FINAL DIFF MANUAL Blastocytes 68 % Platelet Estimate LOW Platelet Morphology Comment NORMAL Vancomycin Level Trough 6.9 MCG/ML Sodium Level 136 MEQ/L Potassium Level 3.2 MEQ/L Chloride Level 101 MEQ/L Carbon Dioxide Level 26.3 MEQ/L Anion Gap 9 MEQ/L Blood Urea Nitrogen 11 MG/DL Creatinine 0.69 MG/DL Estimat Glomerular Filtration 112 ML/MIN Rate Random Glucose 106 MG/DL Calcium Level 7.2 MG/DL Protein Corrected Calcium 7.5 MG/DL Magnesium Level 2.2 MG/DL Total Protein 6.5 GM/DL Culture Results Microbiology Date/Time Procedure Status Source Growth 11/29/16 19:30 Aerobic Blood Culture - Preliminary Resulted Blood Peripheral NO GROWTH IN 1 DAY 11/29/16 19:30 Anaerobic Blood Culture - Preliminary Resulted Blood Peripheral NO GROWTH IN 1 DAY 11/29/16 19:38 Aerobic Blood Culture - Preliminary Resulted Blood Peripheral NO GROWTH IN 1 DAY 11/29/16 19:38 Anaerobic Blood Culture - Preliminary Resulted Blood Peripheral NO GROWTH IN 1 DAY Administered Medications Medications (Trade) Dose Ordered Sig/Catina Route PRN Reason Start Time Stop Time Status Last Admin Dose Admin IV Flush (NS Flush) 2 ml UNSCH PRN FLUSH FLUSH AFTER USING IV ACCESS 11/25/16 16:15 11/29/16 11:20 IV Flush (NS Flush) 2 ml BID FLUSH 11/25/16 21:00 11/30/16 08:59 Acetaminophen (Tylenol) 650 mg Q4H PRN PO TEMP > 100.4 11/25/16 17:00 11/26/16 12:04 Docusate Sodium (Colace) 100 mg Q12H PO 11/25/16 17:00 11/29/16 15:46 Magnesium Hydroxide (Milk Of Magnrainer Liq) 30 ml Q12H PRN PO CONSTIPATION 11/25/16 17:00 11/28/16 12:43 Sennosides (Senokot) 17.2 mg Q12H PRN PO CONSTIPATION 11/25/16 17:00 11/27/16 05:17 Atorvastatin Calcium (Lipitor) 80 mg HS PO 11/25/16 21:00 11/29/16 21:12 Metoprolol Tartrate (Lopressor) 50 mg Q12HR PO 11/25/16 21:00 11/29/16 21:12 Levofloxacin 500 mg 500 mg Q24H PO 11/26/16 21:00 11/29/16 21:12 Cefepime HCl 2000 mg/Sodium Chloride 100 ml @ 200 mls/hr Q8H IV 11/26/16 20:00 11/30/16 04:00 Vancomycin HCl/ Sodium Chloride (Vancomycin Inj/ NS 250 ml Inj) 262.5 ml @ 250 mls/hr Q12H IV 11/30/16 10:00 11/30/16 10:11 Objective Remarks GENERAL: Well-nourished, well-developed patient. SKIN: Warm and dry. HEAD: Normocephalic. EYES: No scleral icterus. No injection or drainage. NECK: Supple, trachea midline. No JVD or lymphadenopathy. LYMPHATIC: No adenopathy. CARDIOVASCULAR: Regular rate and rhythm without murmurs. RESPIRATORY: Breath sounds equal bilaterally. No accessory muscle use. GASTROINTESTINAL: Abdomen soft, non-tender, nondistended. EXTREMITIES: No cyanosis, 1+ BLEedema. MUSCULOSKELETAL: Adequate muscle tone. NEUROLOGICAL: No obvious focal deficit. Awake, alert, and oriented x3. PSYCHIATRIC: Appropriate mood and affect; insight and judgment normal. 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 (2) Pancytopenia Status: Acute Plan: 11/30/16: Platelets up to 30K with transfusion. WBC and Hgb stable. 11/29/16: Platelets 7K today. Will transfuse 1 unit irradiated platelets. -- Transfuse to keep platelets greater than 10K, Hgb greater than 7. -- No bleeding. (3) Severe neutropenia Status: Acute Plan: 11/30/16: ANC still 0.1, remains afebrile. 11/28/16: Neutrophil count 0.0 today. Continue neutropenic precautions. -- BC on 11/26 show staph coag neg. -- ID following. 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 Plan 1: No transfusion needed today. 2: Continue antibiotics, neutropenic precautions. 3. Continue to monitor CBC and tranfuse to keep Hgb greater than 7 and platelets greater than 10k. 4. Supportive care. 5. Hopefully able to be d/c tomorrow is counts are stable. Maximino Low MD Nov 30, 2016 11:23
[2016-11-30 12:00] VITALS: BP 114/60; PULSE 90; RESP 18; TEMP 97.4; O2SAT 95
--- NOTE | 2016-11-30 12:57 | HHI.PR ---
Subjective Remarks Patient feels better today, seen in follow up for AML. Complains of constipation and requests MOM Objective Vitals Vital Signs Date Time Temp Pulse Resp B/P Pulse Ox O2 Delivery O2 Flow Rate FiO2 11/30/16 08:00 97.5 88 18 115/58 98 11/30/16 04:00 99.2 79 17 115/62 96 11/30/16 00:00 99.9 90 18 149/70 93 11/29/16 20:00 99.5 91 17 141/70 98 11/29/16 17:50 98.2 88 18 146/65 97 11/29/16 16:00 99.4 82 18 139/69 98 11/29/16 14:30 98.6 85 17 128/69 100 I/O 11/29/16 11/29/16 11/29/16 11/30/16 11/30/16 11/30/16 07:00 15:00 23:00 07:00 15:00 23:00 Intake Total 480 ml 1258 ml 530 ml 240 ml 1013 ml Output Total 150 ml 500 ml 300 ml Balance 330 ml 758 ml 230 ml 240 ml 1013 ml Intake Oral 480 ml 480 ml 240 ml 240 ml IV Total 778 ml 290 ml 1013 ml Output Urine Total 150 ml 500 ml 300 ml # Voids 4 2 # Bowel Movements 0 1 1 1 Result Diagram: 11/29/16 19311/30/16 0725 Objective Remarks GENERAL: This is a frail, well-developed patient, OOB to chair today CARDIOVASCULAR: Regular rate and rhythm without murmurs, gallops, or rubs. RESPIRATORY: Clear to auscultation. Breath sounds equal bilaterally. No wheezes , rales, or rhonchi. GASTROINTESTINAL: Abdomen soft, non-tender, nondistended. Normal active bowel sounds MUSCULOSKELETAL: Extremities without clubbing, cyanosis, +3 edema NEURO: Alert & Oriented x4 to person, place, time, situation. Moves all ext x4 A/P Problem List: (1) Pancytopenia ICD Code: D61.818 Status: Acute Plan: Continue cefepime and vancomycin for neutropenia with low-grade temperature. blood Cultures on 11/26 show staph coag neg. at this time repeat BC pending (2) AML (acute myeloblastic leukemia) ICD Code: C92.00 Status: Acute Plan: plt stable after transfusion transfuse per oncology outpatient [place] (3) Severe neutropenia ICD Code: D70.9 Status: Acute Plan: no fever overnight (4) Constipation ICD Code: K59.00 Status: Acute Plan: MOM, regimen Assessment and Plan d/c telem D/C IVF Julianna Gee MD Nov 30, 2016 12:57
[2016-11-30] MEDS ORDERED: MAGNESIUM HYDROXIDE SUSP 30 ML CUP PO ONE (13:00)
[2016-11-30 16:00] VITALS: BP 140/66; PULSE 88; RESP 18; TEMP 99.1; O2SAT 99
[2016-11-30 20:00] VITALS: BP 140/69; PULSE 91; RESP 17; TEMP 99.5; O2SAT 97
[2016-11-30] MEDS: ATORVASTATIN 80 MG TAB PO SCH (20:20)
[2016-11-30] MEDS: LEVOFLOXACIN 500 MG TAB PO SCH (20:20)
[2016-12-01 01:19] VITALS: BP 134/65; PULSE 87; RESP 18; TEMP 99.6; O2SAT 96
[2016-12-01] MEDS: CEFEPIME INJ 2,000 MG in SODIUM CHLORIDE 0.9% INJ 100 ML IV SCH ×3 (06:00→20:48)
[2016-12-01 08:00] VITALS: BP 131/73; PULSE 93; RESP 16; TEMP 99.2; O2SAT 92
[2016-12-01] MEDS: SODIUM CHLORIDE 0.9% FLUSH 5 ML FLUSH FLUSH SCH ×2 (09:00→20:49)
[2016-12-01] MEDS: METOPROLOL TARTRATE 50 MG TAB PO SCH ×2 (09:00→20:48)
[2016-12-01] MEDS: DOCUSATE SODIUM 100 MG CAP PO SCH ×2 (09:00→20:49)
[2016-12-01 09:06] LABS: HEMATOCRIT 23.4 % (39.0-51.0); MEAN CELL VOLUME 87.3 FL (80.0-100.0); MEAN CORPUSCULAR HEMOGLOBIN 30.1 PG (27.0-34.0); MEAN CORPUSCULAR HGB CONC 34.5 % (32.0-36.0); RED BLOOD COUNT 2.68 MIL/MM3 (4.50-5.90); RED CELL DISTRIBUTION WIDTH 14.9 % (11.6-17.2); WHITE BLOOD COUNT 2.9 TH/MM3 (4.0-11.0)
[2016-12-01 09:26] LABS: HEMO FLAGS AUTO DIFF
[2016-12-01 09:31] LABS: PLATELET COUNT 17 TH/MM3 (150-450)
[2016-12-01] MEDS ORDERED: PHARMACY ORDERED LAB XX ONE (09:45)
--- NOTE | 2016-12-01 10:26 | PD.ONC.PN ---
Subjective Subjective Remarks Afebrile overnight. Patient feeling well today. He is wanting to know when he can go home. Denies bleeding. No black stools. Objective Data Date Time Temp Pulse Resp B/P Pulse Ox O2 Delivery O2 Flow Rate FiO2 12/01/16 08:00 99.2 93 16 131/73 92 12/01/16 01:19 99.6 87 18 134/65 96 11/30/16 20:00 99.5 91 17 140/69 97 11/30/16 18:55 Room Air 11/30/16 16:00 99.1 88 18 140/66 99 11/30/16 12:00 97.4 90 18 114/60 95 12/01/16 12/01/16 12/01/16 07:00 15:00 23:00 Intake Total 480 ml Balance 480 ml Result Diagram: 12/01/16 0600 11/30/16 0725 Laboratory Results Laboratory Tests Test 12/01/16 06:00 White Blood Count 2.9 TH/MM3 Red Blood Count 2.68 MIL/MM3 Hemoglobin 8.1 GM/DL Hematocrit 23.4 % Mean Corpuscular Volume 87.3 FL Mean Corpuscular Hemoglobin 30.1 PG Mean Corpuscular Hemoglobin 34.5 % Concent Red Cell Distribution Width 14.9 % Platelet Count 17 TH/MM3 Mean Platelet Volume 7.4 FL Neutrophils (%) (Auto) % Lymphocytes (%) (Auto) % Monocytes (%) (Auto) % Eosinophils (%) (Auto) % Basophils (%) (Auto) % Neutrophils # (Auto) TH/MM3 Lymphocytes # (Auto) TH/MM3 Monocytes # (Auto) TH/MM3 Eosinophils # (Auto) TH/MM3 Basophils # (Auto) TH/MM3 CBC Comment AUTO DIFF Culture Results Microbiology Date/Time Procedure Status Source Growth 11/29/16 19:30 Aerobic Blood Culture - Preliminary Resulted Blood Peripheral NO GROWTH IN 1 DAY 11/29/16 19:30 Anaerobic Blood Culture - Preliminary Resulted Blood Peripheral NO GROWTH IN 1 DAY 11/29/16 19:38 Aerobic Blood Culture - Preliminary Resulted Blood Peripheral NO GROWTH IN 1 DAY 11/29/16 19:38 Anaerobic Blood Culture - Preliminary Resulted Blood Peripheral NO GROWTH IN 1 DAY Administered Medications Medications (Trade) Dose Ordered Sig/Catina Route PRN Reason Start Time Stop Time Status Last Admin Dose Admin IV Flush (NS Flush) 2 ml UNSCH PRN FLUSH FLUSH AFTER USING IV ACCESS 11/25/16 16:15 11/29/16 11:20 IV Flush (NS Flush) 2 ml BID FLUSH 11/25/16 21:00 12/01/16 09:00 Acetaminophen (Tylenol) 650 mg Q4H PRN PO TEMP > 100.4 11/25/16 17:00 11/26/16 12:04 Magnesium Hydroxide (Milk Of Magnrainer Liq) 30 ml Q12H PRN PO CONSTIPATION 11/25/16 17:00 11/28/16 12:43 Sennosides (Senokot) 17.2 mg Q12H PRN PO CONSTIPATION 11/25/16 17:00 11/27/16 05:17 Atorvastatin Calcium (Lipitor) 80 mg HS PO 11/25/16 21:00 11/30/16 20:20 Metoprolol Tartrate (Lopressor) 50 mg Q12HR PO 11/25/16 21:00 12/01/16 09:00 Levofloxacin 500 mg 500 mg Q24H PO 11/26/16 21:00 11/30/16 20:20 Cefepime HCl 2000 mg/Sodium Chloride 100 ml @ 200 mls/hr Q8H IV 11/26/16 20:00 12/01/16 06:00 Vancomycin HCl/ Sodium Chloride (Vancomycin Inj/ NS 250 ml Inj) 262.5 ml @ 250 mls/hr Q12H IV 11/30/16 10:00 11/30/16 20:20 Objective Remarks GENERAL: Elderly male, sitting up in bed in [facility]. SKIN: Warm and dry. HEAD: Normocephalic. EYES: No scleral icterus. No injection or drainage. NECK: Supple, trachea midline. CARDIOVASCULAR: Regular rate and rhythm RESPIRATORY: Breath sounds equal bilaterally. No accessory muscle use. GASTROINTESTINAL: Abdomen soft, non-tender, nondistended. EXTREMITIES: No cyanosis NEUROLOGICAL: No obvious focal deficit. Awake, alert, and oriented x3. 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 (2) Pancytopenia Status: Acute Plan: 12/01/16: no transfusion today. 11/30/16: Platelets up to 30K with transfusion. WBC and Hgb stable. 11/29/16: Platelets 7K today. Will transfuse 1 unit irradiated platelets. -- Transfuse to keep platelets greater than 10K, Hgb greater than 7. -- No bleeding. (3) Severe neutropenia Status: Acute Plan: 12/01/16: afebrile. 11/30/16: ANC still 0.1, remains afebrile. 11/28/16: Neutrophil count 0.0 today. Continue neutropenic precautions. -- BC on 11/26 show staph coag neg. -- ID following. 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 Plan 1. continue antibiotics. 2. monitor CBC. no transfusion needed today Attending Statement The exam, history, and the medical decision-making described in the above note were completed with the assistance of the mid-level provider. I reviewed and agree with the findings presented. I attest that I had a [id number] encounter with the patient on the same day, and personally performed and documented my assessment and findings in the medical record. Likely has transformed to acute leukemia will be difficult to give him induction chemotherapy--d/w patient To confirm dx will need bone marrow bx. He is interested in pursuing this IR consulted for BM bx. will need flow cytometry/cytogenetics and FISH studies Stop IV vancomycin and Levaquin continue IV cefepime Felisa Post Dec 01, 2016 10:26 Zack Conteh MD Dec 01, 2016 20:41
[2016-12-01] MEDS: VANCOMYCIN INJ 1,250 MG in SODIUM CHLOR 0.9% 250 ML INJ 250 ML IV SCH (10:40)
[2016-12-01 11:03] VITALS: BP 123/64; PULSE 68; RESP 16; TEMP 97.4; O2SAT 95
[2016-12-01 12:13] LABS: BLASTS 65 % (0-0); CORRECTED NUCLEATED RBC 1 /100 WBC (0-0); WBC DIFF SAMPLE 100
[2016-12-01 12:19] LABS: PLATELET ESTIMATE SMEAR RARE (NORMAL); PLATELET MORPHOLOGY NORMAL (NORMAL); SCAN/DIFF FINAL DIFF MANUAL
--- NOTE | 2016-12-01 13:45 | HHI.PR ---
Subjective Remarks Follow-up for pancytopenia. The patient feels well today. Sitting up in chair eating lunch. He denies any fevers, chills, cough, sore throat. Normal BM last night. He states his legs swell sometimes and are alleviated when he props them up. Objective Vitals Vital Signs Date Time Temp Pulse Resp B/P Pulse Ox O2 Delivery O2 Flow Rate FiO2 12/01/16 11:03 97.4 68 16 123/64 95 12/01/16 08:00 99.2 93 16 131/73 92 12/01/16 01:19 99.6 87 18 134/65 96 11/30/16 20:00 99.5 91 17 140/69 97 11/30/16 18:55 Room Air 11/30/16 16:00 99.1 88 18 140/66 99 I/O 11/30/16 11/30/16 11/30/16 12/01/16 12/01/16 12/01/16 07:00 15:00 23:00 07:00 15:00 23:00 Intake Total 240 ml 1013 ml 720 ml 480 ml Balance 240 ml 1013 ml 720 ml 480 ml Intake Oral 240 ml 720 ml 480 ml IV Total 1013 ml # Voids 2 6 2 # Bowel Movements 1 3 0 Result Diagram: 12/01/16 0600 11/30/16 0725 Imaging Last Impressions Chest X-Ray 11/25/16 0000 Signed Impressions: Service Date/Time: Friday, November 25, 2016 15:01 - CONCLUSION: No acute disease. No significant change has occurred. Brendan Chow MD Objective Remarks GENERAL: Well-developed well-nourished. In no acute distress. Sitting up in a chair. SKIN: Warm and dry. Right chest port. HEENT: Normocephalic. Pupils equal and round. Mucous membranes pink and moist. CARDIOVASCULAR: Regular rate and rhythm. No murmur appreciated. RESPIRATORY: No accessory muscle use. Clear to auscultation. Breath sounds equal bilaterally. GASTROINTESTINAL: Abdomen soft, non-tender, nondistended. Bowel sounds x4. MUSCULOSKELETAL: No obvious deformities. No clubbing or cyanosis. 2+ edema, chronic per patient. NEUROLOGICAL: Awake and alert. No focal neurological deficits. Moves upper and lower extremities spontaneously. Normal speech. PSYCHIATRIC: Appropriate mood and affect; insight and judgment normal. A/P Problem List: (1) Pancytopenia ICD Code: D61.818 Status: Acute (2) AML (acute myeloblastic leukemia) ICD Code: C92.00 Status: Acute (3) Severe neutropenia ICD Code: D70.9 Status: Acute (4) Constipation ICD Code: K59.00 Status: Acute Assessment and Plan 76-year-old male with past history myelodysplastic syndrome, CAD, HTN, HLD who presented with fatigue MDS/AML: Continued pancytopenia, stable. Oncology consulted, discussed with Dr. Conteh, will need bone marrow biopsy if patient wants to proceed with chemotherapy, will discuss with the patient. Continue to monitor CBC and transfuse if needed. Neutropenic fever: Continued low-grade fevers overnight. ID is consulted. Continue vancomycin, cefepime, and Levaquin. Neutropenic precautions. Constipation: Patient having documented BMs. Resolved. HTN/HLD: Chronic, stable. Continue metoprolol and statin Written by Khurram Cotton, acting as scribe for Dr. Lyon on 12/01/16 at 13:45. Discharge Planning Disposition pending clinical course. Attending Statement The documentation accurately reflects the work performed [id number] by mtDr. Lyon on 12/01/16 at 13:45. Khurram Cotton Dec 01, 2016 13:45 Shabbir Lyon MD Dec 02, 2016 02:39
[2016-12-01 16:00] VITALS: BP 121/63; PULSE 98; RESP 20; TEMP 99.2; O2SAT 95
[2016-12-01 19:00] VITALS: BP 157/75; PULSE 100; RESP 16; TEMP 98.8; O2SAT 96
[2016-12-01] MEDS ORDERED: VANCOMYCIN INJ 1,500 MG in SODIUM CHLORID 0.9% 500 ML INJ 500 ML IV SCH (20:00)
[2016-12-01] MEDS: LEVOFLOXACIN 500 MG TAB PO SCH (20:48)
[2016-12-01] MEDS: ATORVASTATIN 80 MG TAB PO SCH (20:48)
[2016-12-02] VITALS (7 sets, daily range): BP systolic 133–161; BP diastolic 49–81; PULSE 80–105; RESP 16–18; TEMP 98–99.6; O2SAT 95–96
[2016-12-02] MEDS: CEFEPIME INJ 2,000 MG in SODIUM CHLORIDE 0.9% INJ 100 ML IV SCH ×2 (02:56→17:07)
[2016-12-02 05:19] LABS: HEMATOCRIT 25.3 % (39.0-51.0); MEAN CELL VOLUME 86.8 FL (80.0-100.0); MEAN CORPUSCULAR HGB CONC 34.6 % (32.0-36.0); RED BLOOD COUNT 2.91 MIL/MM3 (4.50-5.90); RED CELL DISTRIBUTION WIDTH 14.9 % (11.6-17.2); WHITE BLOOD COUNT 2.7 TH/MM3 (4.0-11.0)
[2016-12-02 05:21] LABS: HEMO FLAGS AUTO DIFF
[2016-12-02 05:23] LABS: PLATELET COUNT 13 TH/MM3 (150-450)
[2016-12-02 05:34] LABS: BICARBONATE 27.1 MEQ/L (21.0-32.0)
[2016-12-02 07:32] LABS: BLASTS 62 % (0-0); PLATELET ESTIMATE SMEAR LOW (NORMAL); PLATELET MORPHOLOGY NORMAL (NORMAL); SCAN/DIFF FINAL DIFF MANUAL; WBC DIFF SAMPLE 100
[2016-12-02] MEDS: METOPROLOL TARTRATE 50 MG TAB PO SCH ×2 (09:00→20:58)
[2016-12-02] MEDS: DOCUSATE SODIUM 100 MG CAP PO SCH ×2 (09:00→20:58)
[2016-12-02] MEDS: SODIUM CHLORIDE 0.9% FLUSH 5 ML FLUSH FLUSH SCH ×2 (09:00→20:59)
[2016-12-02] MEDS ORDERED: POTASSIUM CHLORIDE 10 MEQ CONTROLLED RELEASE TAB PO ONE ×2 (09:15→14:00)
[2016-12-02] MEDS ORDERED: PHARMACY ORDERED LAB XX ONE (09:45)
[2016-12-02] MEDS ORDERED: fentaNYL CITRATE 250 MCG/5 ML AMP ONE (13:00)
[2016-12-02] MEDS ORDERED: MIDAZOLAM HCL 5 MG/5 ML VIAL ONE (13:00)
[2016-12-02] MEDS ORDERED: LIDOCAINE 1%/EPINEPHrine 1:100,000 SOLN 20 ML VIAL ONE (13:13)
[2016-12-02] MEDS ORDERED: SODIUM BICARBONATE 8.4% INJ 50 ML ONE (13:14)
--- NOTE | 2016-12-02 15:10 | RADRPT ---
EXAM DATE/TIME: 12/02/2016 13:42 [facility] COMPARISON: CT NEEDLE BIOPSY BONE MARROW, July 28, 2016, 10:29. INDICATIONS : Acute myeloblastic leukemia. SEDATION TIME: 30 minutes BIOPSY SITE: Right pelvis MEDICATION(S): 1.) 2 mg midazolam (Versed) IV 2.) 100 mcg fentanyl (Sublimaze) IV DEVICE(S): 1.) 11 gauge Bone marrow biopsy needle MEDICAL HISTORY : Pancytopenia, leukemia SURGICAL HISTORY : None. ENCOUNTER: Initial ACUITY: 1 day PAIN SCORE: 0/10 LOCATION: Right pelvis A total of one core specimen(s) were obtained and sent to the laboratory for pathologic evaluation. PROCEDURE: 1. CT guided bone marrow biopsy. Prior to the procedure informed consent was obtained. Any appropriate prior imaging studies were rev iewed. The site was prepped in a sterile fashion. Full sterile technique was used, including cap, mask, stanley rile gloves and gown and a large sterile sheet. Hand hygiene and 2% chlorhexidine and/or betadine/al cohol prep was utilized per protocol for cutaneous antisepsis. The skin and subcutaneous tissues wer e infiltrated with local anesthetic solution. With CT guidance the previously identified target was localized. Biopsy was performed using the presc ribed needle as above. Following biopsy marrow aspiration was performed with repeat puncture. Adequa te hemostasis was obtained with compression at the puncture site. Follow-up CT scan reveals no hemorrhage. Conscious sedation was performed with the prescribed dosages and duration as above. The patient valorie ated the procedure well and there were no complications. EKG and oximetry remained stable throughout the procedure. The patient was sent to Radiology Outpatient Unit in stable condition. CONCLUSION: 1. Uncomplicated CT guided bone marrow aspirate. 2. Uncomplicated CT guided bone marrow biopsy. Vikas Landis MD FACR on December 02, 2016 at 15:09 Board Certified Radiologist. This report was verified electronically.
[2016-12-02] MEDS ORDERED: oxyCODONE/ACETAMINOPHEN 5 MG/325 MG TAB PO PRN (15:30)
[2016-12-02 15:33] LABS: BONE MARROW PROCESSING COMPLETE; IRON STAIN DONE; JENNER GIEMSA STAIN DONE
--- NOTE | 2016-12-02 19:22 | PD.ONC.PN ---
Subjective Subjective Remarks bone marrow biopsy today wants to pursue aggressive treatment no fevers no bleeding d/w rn Objective Data Date Time Temp Pulse Resp B/P Pulse Ox O2 Delivery O2 Flow Rate FiO2 12/02/16 16:00 98.0 84 18 139/54 95 12/02/16 15:00 80 16 161/81 96 12/02/16 14:35 85 16 139/66 96 12/02/16 14:22 98.6 85 16 149/69 96 12/02/16 14:22 98.6 95 18 139/49 96 12/02/16 08:00 98.6 96 18 133/73 95 12/02/16 04:00 99.6 12/02/16 12/02/16 12/02/16 07:00 15:00 23:00 Intake Total 480 ml Output Total 100 ml Balance 380 ml Result Diagram: 12/02/16 0445 12/02/16 0445 Laboratory Results Laboratory Tests Test 12/02/16 04:45 White Blood Count 2.7 TH/MM3 Red Blood Count 2.91 MIL/MM3 Hemoglobin 8.8 GM/DL Hematocrit 25.3 % Mean Corpuscular Volume 86.8 FL Mean Corpuscular Hemoglobin 30.0 PG Mean Corpuscular Hemoglobin 34.6 % Concent Red Cell Distribution Width 14.9 % Platelet Count 13 TH/MM3 Mean Platelet Volume 7.3 FL Neutrophils (%) (Auto) % Lymphocytes (%) (Auto) % Monocytes (%) (Auto) % Eosinophils (%) (Auto) % Basophils (%) (Auto) % Neutrophils # (Auto) TH/MM3 Lymphocytes # (Auto) TH/MM3 Monocytes # (Auto) TH/MM3 Eosinophils # (Auto) TH/MM3 Basophils # (Auto) TH/MM3 CBC Comment AUTO DIFF Differential Total Cells 100 Counted Lymphocytes % 38 % Differential Comment FINAL DIFF MANUAL Blastocytes 62 % Platelet Estimate LOW Platelet Morphology Comment NORMAL Sodium Level 139 MEQ/L Potassium Level 3.0 MEQ/L Chloride Level 102 MEQ/L Carbon Dioxide Level 27.1 MEQ/L Anion Gap 10 MEQ/L Blood Urea Nitrogen 10 MG/DL Creatinine 0.65 MG/DL Estimat Glomerular Filtration 120 ML/MIN Rate Random Glucose 103 MG/DL Calcium Level 7.6 MG/DL Culture Results Microbiology Date/Time Procedure Status Source Growth 11/29/16 19:30 Aerobic Blood Culture - Preliminary Resulted Blood Peripheral NO GROWTH IN 3 DAYS 1/1/17 19:30 Anaerobic Blood Culture - Preliminary Resulted Blood Peripheral NO GROWTH IN 3 DAYS 11/29/16 19:38 Aerobic Blood Culture - Preliminary Resulted Blood Peripheral NO GROWTH IN 3 DAYS 11/29/16 19:38 Anaerobic Blood Culture - Preliminary Resulted Blood Peripheral NO GROWTH IN 3 DAYS Administered Medications Medications (Trade) Dose Ordered Sig/Catina Route PRN Reason Start Time Stop Time Status Last Admin Dose Admin IV Flush (NS Flush) 2 ml UNSCH PRN FLUSH FLUSH AFTER USING IV ACCESS 11/25/16 16:15 11/29/16 11:20 IV Flush (NS Flush) 2 ml BID FLUSH 11/25/16 21:00 12/02/16 09:00 Acetaminophen (Tylenol) 650 mg Q4H PRN PO TEMP > 100.4 11/25/16 17:00 11/26/16 12:04 Magnesium Hydroxide (Milk Of Magnrainer Liq) 30 ml Q12H PRN PO CONSTIPATION 11/25/16 17:00 11/28/16 12:43 Sennosides (Senokot) 17.2 mg Q12H PRN PO CONSTIPATION 11/25/16 17:00 11/27/16 05:17 Atorvastatin Calcium (Lipitor) 80 mg HS PO 11/25/16 21:00 12/01/16 20:48 Metoprolol Tartrate (Lopressor) 50 mg Q12HR PO 11/25/16 21:00 12/01/16 20:48 Levofloxacin (Levaquin) 500 mg Q24H PO 11/26/16 21:00 12/01/16 20:48 Docusate Sodium 100 mg 100 mg Q12HR PO 12/01/16 09:00 12/01/16 20:49 Cefepime HCl/ Sodium Chloride (Maxipime Inj/NS Inj) 100 ml @ 200 mls/hr Q8H IV 12/02/16 17:00 12/02/16 17:07 Objective Remarks GENERAL: nad SKIN: Warm and dry. LYMPHATIC: No adenopathy. CARDIOVASCULAR: Regular rate and rhythm without murmurs. RESPIRATORY: Breath sounds equal bilaterally. No accessory muscle use. GASTROINTESTINAL: Abdomen soft, non-tender, nondistended. EXTREMITIES: No cyanosis, or edema. 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 (2) Pancytopenia Status: Acute Plan: 12/01/16: no transfusion today. 11/30/16: Platelets up to 30K with transfusion. WBC and Hgb stable. 11/29/16: Platelets 7K today. Will transfuse 1 unit irradiated platelets. -- Transfuse to keep platelets greater than 10K, Hgb greater than 7. -- No bleeding. (3) Severe neutropenia Status: Acute Plan: 12/01/16: afebrile. 11/30/16: ANC still 0.1, remains afebrile. 11/28/16: Neutrophil count 0.0 today. Continue neutropenic precautions. -- BC on 11/26 show staph coag neg. -- ID following. 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 Plan 1. D/C Levaquin. continue IVF Cefepime 2. No blood products today 3. Bone marrow biopsy today 4. Will likely needs platelets in AM 5. Possibility of cytoreduction with Hydrea or Single agent Cytarabine, I am doubtful that he will be able to tolerated full dose induction chemotherapy 6. Peripheral Smear reviewed and shows increased blasts. Zack Conteh MD Dec 02, 2016 19:22
[2016-12-02] MEDS: ATORVASTATIN 80 MG TAB PO SCH (20:58)
[2016-12-02] MEDS: LEVOFLOXACIN 500 MG TAB PO SCH (20:58)
--- NOTE | 2016-12-02 20:59 | HHI.PR ---
Subjective Remarks patient seen this afternoon after bone marrow biopsy. He says that he feels well today. Denies any chest pain or shortness of breath. Objective Vital Signs Date Time Temp Pulse Resp B/P Pulse Ox O2 Delivery O2 Flow Rate FiO2 12/02/16 16:00 98.0 84 18 139/54 95 12/02/16 15:00 80 16 161/81 96 12/02/16 14:35 85 16 139/66 96 12/02/16 14:22 98.6 85 16 149/69 96 12/02/16 14:22 98.6 95 18 139/49 96 12/02/16 08:00 98.6 96 18 133/73 95 12/02/16 04:00 99.6 I/O 12/01/16 12/01/16 12/01/16 12/02/16 12/02/16 12/02/16 07:00 15:00 23:00 07:00 15:00 23:00 Intake Total 480 ml 120 ml 480 ml 480 ml Output Total 100 ml Balance 480 ml 120 ml 480 ml 380 ml Intake Oral 480 ml 120 ml 480 ml 480 ml Output Urine Total 100 ml # Voids 2 3 1 3 # Bowel Movements 0 1 0 0 Result Diagram: 12/02/1644412/02/16444 Objective Remarks GENERAL: patient lying in bed. Appears comfortable. Alert and oriented x3. SKIN: Warm and dry. HEAD: Normocephalic. EYES: No scleral icterus. No injection or drainage. NECK: Supple, trachea midline. No JVD. CARDIOVASCULAR: Regular rate and rhythm without murmurs, gallops, or rubs. RESPIRATORY: Breath sounds equal bilaterally. No accessory muscle use. GASTROINTESTINAL: Abdomen soft, non-tender, nondistended. MUSCULOSKELETAL: No cyanosis. +1 peripheral edema bilateral lower extremities. BACK: Nontender without obvious deformity. No CVA tenderness. A/P Assessment and Plan 76-year-old male with past history myelodysplastic syndrome, CAD, HTN, HLD who presented with fatigue MDS/AML: Continued pancytopenia, stable. - Transfusions of platelets and RBCs as per hematology. - Transfuse to keep platelets greater then 10,000, hemoglobin greater than 7000. -Status post bone marrow biopsy 12/02/16. - Management as per hematology. Neutropenic fever: - No fevers overnight -Continue antibiotics as per infectious disease and hematology. Constipation: Patient having documented BMs. Resolved. HTN/HLD: Chronic, stable. Continue metoprolol and statin Prophylaxis. As per hematology. Discharge Planning as per hematology. Shabbir Lyon MD Dec 02, 2016 20:59
[2016-12-03] VITALS (9 sets, daily range): BP systolic 125–158; BP diastolic 62–74; PULSE 66–102; RESP 16–18; TEMP 97–101.5; O2SAT 93–97
[2016-12-03] MEDS: CEFEPIME INJ 2,000 MG in SODIUM CHLORIDE 0.9% INJ 100 ML IV SCH ×3 (01:23→17:00)
[2016-12-03 07:23] LABS: HEMATOCRIT 22.8 % (39.0-51.0); MEAN CELL VOLUME 86.8 FL (80.0-100.0); MEAN CORPUSCULAR HEMOGLOBIN 30.4 PG (27.0-34.0); RED BLOOD COUNT 2.62 MIL/MM3 (4.50-5.90); RED CELL DISTRIBUTION WIDTH 14.6 % (11.6-17.2); WHITE BLOOD COUNT 4.1 TH/MM3 (4.0-11.0)
[2016-12-03 07:27] LABS: HEMO FLAGS AUTO DIFF
[2016-12-03 07:28] LABS: PLATELET COUNT 10 TH/MM3 (150-450)
[2016-12-03 08:09] LABS: CALCIUM-PROTEIN CORRECTED 8.2 MG/DL (8.5-10.1)
[2016-12-03 08:23] LABS: BLASTS 69 % (0-0); PLASMA CELLS 1 % (0-0); PLATELET ESTIMATE SMEAR RARE (NORMAL); SCAN/DIFF FINAL DIFF MANUAL; WBC DIFF SAMPLE 100
[2016-12-03] MEDS ORDERED: SODIUM CHLOR 0.9% 250 ML INJ 250 ML IV ONE (08:45)
[2016-12-03] MEDS: DOCUSATE SODIUM 100 MG CAP PO SCH ×2 (08:48→21:45)
[2016-12-03] MEDS: METOPROLOL TARTRATE 50 MG TAB PO SCH ×2 (08:48→21:44)
[2016-12-03] MEDS: SODIUM CHLORIDE 0.9% FLUSH 5 ML FLUSH FLUSH SCH ×2 (08:49→21:45)
[2016-12-03] MEDS ORDERED: MAGNESIUM HYDROXIDE SUSP 30 ML CUP PO PRN (09:45)
--- NOTE | 2016-12-03 09:56 | HHI.PR ---
Subjective Remarks Reports he has not had a bowel movement for 2 days. He also reports increased urinary frequency. At times it does burn. He did see some mild blood 2 days ago however no further bloody urine. He states that he has no active bleeding overnight. He denies any abdominal pain. He reports no pain from biopsy site. Objective Vitals Vital Signs Date Time Temp Pulse Resp B/P Pulse Ox O2 Delivery O2 Flow Rate FiO2 12/03/16 07:59 100.0 99 18 140/69 94 12/03/16 04:00 100.3 102 18 129/74 94 12/03/16 00:00 99.9 92 18 125/68 97 12/02/16 20:00 98.5 105 18 150/78 95 12/02/16 16:00 98.0 84 18 139/54 95 12/02/16 15:00 80 16 161/81 96 12/02/16 14:35 85 16 139/66 96 12/02/16 14:22 98.6 85 16 149/69 96 12/02/16 14:22 98.6 95 18 139/49 96 I/O 12/02/16 12/02/16 12/02/16 12/03/16 12/03/16 12/03/16 07:00 15:00 23:00 07:00 15:00 23:00 Intake Total 480 ml 480 ml 480 ml Output Total 100 ml Balance 380 ml 480 ml 480 ml Intake Oral 480 ml 480 ml 480 ml Output Urine Total 100 ml # Voids 3 3 3 # Bowel Movements 0 0 0 Result Diagram: 12/03/16 0702 12/03/16 0702 Other Results Microbiology Date/Time Procedure Status Source Growth 11/29/16 19:38 Aerobic Blood Culture - Preliminary Resulted Blood Peripheral NO GROWTH IN 3 DAYS 11/29/16 19:38 Anaerobic Blood Culture - Preliminary Resulted Blood Peripheral NO GROWTH IN 3 DAYS Objective Remarks GENERAL: This is a well-nourished, well-developed patient, in no apparent distress. CARDIOVASCULAR: Regular rate and rhythm RESPIRATORY: Clear to auscultation. Breath sounds equal bilaterally. No wheezes , rales, or rhonchi. GASTROINTESTINAL: Abdomen soft, non-tender, nondistended. Normal active bowel sounds MUSCULOSKELETAL: Extremities without clubbing, cyanosis, 1+ edema NEURO: Alert & Oriented x4 to person, place, time, situation. Moves all ext x4 A/P Problem List: (1) Pancytopenia ICD Code: D61.818 Status: Acute (2) AML (acute myeloblastic leukemia) ICD Code: C92.00 Status: Acute (3) Severe neutropenia ICD Code: D70.9 Status: Acute (4) Constipation ICD Code: K59.00 Status: Acute Assessment and Plan 76-year-old male with past history myelodysplastic syndrome, CAD, HTN, HLD who presented with fatigue acute myeloblastic leukemia: Continued pancytopenia, stable. Hematology currently following - Transfuse 1 unit of platelets today to keep platelets greater then 10,000, Keep hemoglobin greater than 7, today's hemoglobin 8 -Status post bone marrow biopsy 12/02/16. Await results of home marrow biopsy. - Further management recommendations per hematology. Neutropenic fever: -Continue antibiotics cefepime E as per infectious disease and hematology. Due to symptoms of dysuria, will check a urinalysis to rule out underlying UTI. Constipation: Dose of milk of mag to be given today. HTN/HLD: Chronic, stable. Continue metoprolol and statin Hypokalemiareplete. DVT Prophylaxis. Bilateral SCDs, no anticoagulation due to thrombocytopenia. Discharge Planning Discharge planning per clinical course and per hematology's recommendations. Lindsey Reagan MD Dec 03, 2016 09:56
[2016-12-03] MEDS ORDERED: POTASSIUM CHLORIDE 20 MEQ CONTROLLED RELEASE TAB PO ONE (10:00)
--- NOTE | 2016-12-03 10:08 | PD.ONC.PN ---
Subjective Subjective Remarks Tmax 100.3 overnight. Patient resting comfortably. He feels tired and states he is urinating frequently. He wants to know if he can go home for a few days, then come back before initiating treatment. Objective Data Date Time Temp Pulse Resp B/P Pulse Ox O2 Delivery O2 Flow Rate FiO2 12/03/16 07:59 100.0 99 18 140/69 94 12/03/16 04:00 100.3 102 18 129/74 94 12/03/16 00:00 99.9 92 18 125/68 97 12/02/16 20:00 98.5 105 18 150/78 95 12/02/16 16:00 98.0 84 18 139/54 95 12/02/16 15:00 80 16 161/81 96 12/02/16 14:35 85 16 139/66 96 12/02/16 14:22 98.6 85 16 149/69 96 12/02/16 14:22 98.6 95 18 139/49 96 12/03/16 12/03/16 12/03/16 07:00 15:00 23:00 Intake Total 480 ml Balance 480 ml Result Diagram: 12/03/16 0702 12/03/16 0702 Laboratory Results Laboratory Tests Test 12/03/16 12/03/16 07:02 09:01 White Blood Count 4.1 TH/MM3 Red Blood Count 2.62 MIL/MM3 Hemoglobin 8.0 GM/DL Hematocrit 22.8 % Mean Corpuscular Volume 86.8 FL Mean Corpuscular Hemoglobin 30.4 PG Mean Corpuscular Hemoglobin 35.0 % Concent Red Cell Distribution Width 14.6 % Platelet Count 10 TH/MM3 Mean Platelet Volume 7.3 FL Neutrophils (%) (Auto) % Lymphocytes (%) (Auto) % Monocytes (%) (Auto) % Eosinophils (%) (Auto) % Basophils (%) (Auto) % Neutrophils # (Auto) TH/MM3 Lymphocytes # (Auto) TH/MM3 Monocytes # (Auto) TH/MM3 Eosinophils # (Auto) TH/MM3 Basophils # (Auto) TH/MM3 CBC Comment AUTO DIFF Differential Total Cells 100 Counted Lymphocytes % 30 % Differential Comment FINAL DIFF MANUAL Blastocytes 69 % Plasma Cells 1 % Platelet Estimate RARE Sodium Level 138 MEQ/L Potassium Level 3.0 MEQ/L Chloride Level 100 MEQ/L Carbon Dioxide Level 29.0 MEQ/L Anion Gap 9 MEQ/L Blood Urea Nitrogen 11 MG/DL Creatinine 0.56 MG/DL Estimat Glomerular Filtration 142 ML/MIN Rate Random Glucose 115 MG/DL Calcium Level 7.4 MG/DL Protein Corrected Calcium 8.2 MG/DL Total Protein 5.6 GM/DL Blood Bank Comment Administered Medications Medications (Trade) Dose Ordered Sig/Catina Route PRN Reason Start Time Stop Time Status Last Admin Dose Admin IV Flush (NS Flush) 2 ml UNSCH PRN FLUSH FLUSH AFTER USING IV ACCESS 11/25/16 16:15 11/29/16 11:20 IV Flush (NS Flush) 2 ml BID FLUSH 11/25/16 21:00 12/03/16 08:49 Acetaminophen (Tylenol) 650 mg Q4H PRN PO TEMP > 100.4 11/25/16 17:00 11/26/16 12:04 Sennosides (Senokot) 17.2 mg Q12H PRN PO CONSTIPATION 11/25/16 17:00 11/27/16 05:17 Atorvastatin Calcium (Lipitor) 80 mg HS PO 11/25/16 21:00 12/02/16 20:58 Metoprolol Tartrate (Lopressor) 50 mg Q12HR PO 11/25/16 21:00 12/03/16 08:48 Docusate Sodium 100 mg 100 mg Q12HR PO 12/01/16 09:00 12/03/16 08:48 Cefepime HCl/ Sodium Chloride (Maxipime Inj/NS Inj) 100 ml @ 200 mls/hr Q8H IV 12/02/16 17:00 12/03/16 08:48 Objective Remarks GENERAL: Fatigued elderly male, lying in bed in nad SKIN: Warm and dry. a few bruises on extremities HEAD: Normocephalic. EYES:No injection or drainage. NECK: Supple, trachea midline. CARDIOVASCULAR: Regular rate and rhythm RESPIRATORY: diminished at bases. anterior oleary clear. GASTROINTESTINAL: Abdomen soft, non-tender, nondistended. EXTREMITIES: No cyanosis. 1+ pretibial edema. MUSCULOSKELETAL: Adequate muscle tone. NEUROLOGICAL: No obvious focal deficit. Awake, alert, and oriented x3. 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 (2) Pancytopenia Status: Acute Plan: 12/03/16: agree with platelet transfusion. monitor CBC 12/01/16: no transfusion today. 11/30/16: Platelets up to 30K with transfusion. WBC and Hgb stable. 11/29/16: Platelets 7K today. Will transfuse 1 unit irradiated platelets. -- Transfuse to keep platelets greater than 10K, Hgb greater than 7. -- No bleeding. (3) Severe neutropenia Status: Acute Plan: 12/03/16: tmax 100.3 overnight. remains on cefepime only. 12/01/16: afebrile. 11/30/16: ANC still 0.1, remains afebrile. 11/28/16: Neutrophil count 0.0 today. Continue neutropenic precautions. -- BC on 11/26 show donis berkowitzg neg. -- ID following. 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 Plan 1. urinalysis 2. continue IV cefepime 3. agree with plt. transfusion 4. I asked the nurse to assist the patient with filling out a healthcare surrogate form. he wants to designate his brother and nephew. 5. STAT blood cultures 6. if patient spikes fever >100.4 in next 24 hours, would recommend resuming Vancomycin Attending Statement The exam, history, and the medical decision-making described in the above note were completed with the assistance of the mid-level provider. I reviewed and agree with the findings presented. I attest that I had a [id number] encounter with the patient on the same day, and personally performed and documented my assessment and findings in the medical record. Discussed case with Pathology Dr. Dior, patient had approximately 35% blasts consistent with transformation to AML. Discussed with patient as well. He is not a candidate for aggressive therapy. He is agreeable to trial of outpatient Vidaza. We will plan to discharge him home on Wednesday, if he does not have any evidence of infection. He will be discharged home on Levaquin 500mg daily and Bactrim DS MWF. Transfused platelets today. Blood cx ordered. Continue cefepime. transfer to oncology floor. If cultures negative and no fevers, he will be discharged home and f/u with me in clinic in one week. Felisa Post Dec 03, 2016 10:08 Zack Conteh MD Dec 03, 2016 22:21
[2016-12-03] MEDS ORDERED: MAGNESIUM HYDROXIDE SUSP 30 ML CUP PO ONE (10:45)
[2016-12-03] MEDS: ACETAMINOPHEN 325 MG TAB PO PRN (15:48)
[2016-12-03] MEDS ORDERED: HYDROXYUREA 500 MG CAP PO SCH ×2 (18:00)
[2016-12-03] MEDS: ATORVASTATIN 80 MG TAB PO SCH (21:42)
[2016-12-04] VITALS (7 sets, daily range): BP systolic 133–150; BP diastolic 62–79; PULSE 90–119; RESP 16–19; TEMP 97.1–100.2; O2SAT 92–100
[2016-12-04] MEDS: CEFEPIME INJ 2,000 MG in SODIUM CHLORIDE 0.9% INJ 100 ML IV SCH ×3 (01:54→18:12)
[2016-12-04 07:23] LABS: HEMATOCRIT 22.5 % (39.0-51.0); MEAN CELL VOLUME 86.7 FL (80.0-100.0); MEAN CORPUSCULAR HEMOGLOBIN 30.2 PG (27.0-34.0); MEAN CORPUSCULAR HGB CONC 34.8 % (32.0-36.0); PLATELET COUNT 32 TH/MM3 (150-450); RED CELL DISTRIBUTION WIDTH 14.4 % (11.6-17.2)
[2016-12-04 07:30] LABS: BICARBONATE 30.5 MEQ/L (21.0-32.0); MAGNESIUM 2.1 MG/DL (1.5-2.5); POTASSIUM 3.6 MEQ/L (3.5-5.1); URIC ACID 2.3 MG/DL (2.6-7.2)
[2016-12-04 07:48] LABS: CALCIUM-PROTEIN CORRECTED 7.9 MG/DL (8.5-10.1)
[2016-12-04 07:50] LABS: HEMO FLAGS AUTO DIFF
[2016-12-04 09:32] LABS: BLASTS 58 % (0-0); PLASMA CELLS 1 % (0-0); PLATELET ESTIMATE SMEAR RARE (NORMAL); PLATELET MORPHOLOGY NORMAL (NORMAL); SCAN/DIFF FINAL DIFF MANUAL; WBC DIFF SAMPLE 100
--- NOTE | 2016-12-04 10:14 | PD.ONC.PN ---
Subjective Subjective Remarks Afebrile overnight. Pt states he feels tired as he just got through with physical therapy. He complains of some intermittent groin pain and SOB on exertion. He is anxious to leave the hospital. Objective Data Date Time Temp Pulse Resp B/P Pulse Ox O2 Delivery O2 Flow Rate FiO2 12/04/16 08:00 97.1 119 18 147/79 98 12/04/16 04:00 99.1 104 18 150/70 92 12/04/16 00:04 97.9 90 18 139/62 92 12/03/16 21:48 92 Room Air 12/03/16 20:00 98.3 91 16 140/72 96 12/03/16 18:01 98.4 88 16 134/65 97 12/03/16 17:49 98.3 86 16 134/62 96 12/03/16 17:00 97.0 66 18 158/65 93 12/03/16 15:30 101.5 102 18 153/74 97 12/03/16 12:00 100.0 99 18 147/74 95 12/04/16 12/04/16 12/04/16 07:00 15:00 23:00 Intake Total 310 ml Balance 310 ml Result Diagram: 12/04/16 0520 12/04/16 0520 Laboratory Results Laboratory Tests Test 12/04/16 05:20 White Blood Count 5.0 TH/MM3 Red Blood Count 2.60 MIL/MM3 Hemoglobin 7.8 GM/DL Hematocrit 22.5 % Mean Corpuscular Volume 86.7 FL Mean Corpuscular Hemoglobin 30.2 PG Mean Corpuscular Hemoglobin 34.8 % Concent Red Cell Distribution Width 14.4 % Platelet Count 32 TH/MM3 Mean Platelet Volume 7.3 FL Neutrophils (%) (Auto) % Lymphocytes (%) (Auto) % Monocytes (%) (Auto) % Eosinophils (%) (Auto) % Basophils (%) (Auto) % Neutrophils # (Auto) TH/MM3 Lymphocytes # (Auto) TH/MM3 Monocytes # (Auto) TH/MM3 Eosinophils # (Auto) TH/MM3 Basophils # (Auto) TH/MM3 CBC Comment AUTO DIFF Differential Total Cells 100 Counted Lymphocytes % 39 % Monocytes % 2 % Differential Comment FINAL DIFF MANUAL Blastocytes 58 % Plasma Cells 1 % Platelet Estimate RARE Platelet Morphology Comment NORMAL Sodium Level 138 MEQ/L Potassium Level 3.6 MEQ/L Chloride Level 101 MEQ/L Carbon Dioxide Level 30.5 MEQ/L Anion Gap 7 MEQ/L Blood Urea Nitrogen 12 MG/DL Creatinine 0.57 MG/DL Estimat Glomerular Filtration 139 ML/MIN Rate Random Glucose 99 MG/DL Uric Acid 2.3 MG/DL Calcium Level 7.2 MG/DL Protein Corrected Calcium 7.9 MG/DL Phosphorus Level 1.8 MG/DL Magnesium Level 2.1 MG/DL Total Protein 5.8 GM/DL Culture Results Microbiology Date/Time Procedure Status Source Growth 12/03/16 16:12 Aerobic Blood Culture - Final Resulted Blood Peripheral QNS - SEE ANAEROBE REPORT 12/03/16 16:12 Anaerobic Blood Culture Resulted Blood Peripheral Pending 12/03/16 17:30 Aerobic Blood Culture Received Blood Line Pending 12/03/16 17:30 Anaerobic Blood Culture Received Blood Line Pending Administered Medications Medications (Trade) Dose Ordered Sig/Catina Route PRN Reason Start Time Stop Time Status Last Admin Dose Admin IV Flush (NS Flush) 2 ml UNSCH PRN FLUSH FLUSH AFTER USING IV ACCESS 11/25/16 16:15 11/29/16 11:20 IV Flush (NS Flush) 2 ml BID FLUSH 11/25/16 21:00 12/03/16 21:45 Acetaminophen (Tylenol) 650 mg Q4H PRN PO TEMP > 100.4 11/25/16 17:00 12/03/16 15:48 Sennosides (Senokot) 17.2 mg Q12H PRN PO CONSTIPATION 11/25/16 17:00 11/27/16 05:17 Atorvastatin Calcium (Lipitor) 80 mg HS PO 11/25/16 21:00 12/03/16 21:42 Metoprolol Tartrate (Lopressor) 50 mg Q12HR PO 11/25/16 21:00 12/03/16 21:44 Docusate Sodium 100 mg 100 mg Q12HR PO 12/01/16 09:00 12/03/16 21:45 Cefepime HCl/ Sodium Chloride (Maxipime Inj/NS Inj) 100 ml @ 200 mls/hr Q8H IV 12/02/16 17:00 12/04/16 01:54 Objective Remarks GENERAL: Pale appearing older male, lying in bed asleep on approach. SKIN: Warm and dry. HEAD: Normocephalic. EYES: No injection or drainage. NECK: Supple, trachea midline. CARDIOVASCULAR: +S1/S2. Regular rate/rhythm. RESPIRATORY: Scattered exp wheezes. No accessory muscle use. GASTROINTESTINAL: Abdomen soft, non-tender, nondistended. Protuberant. EXTREMITIES: Anasarca. 2-3+ edema to all four extremities. MUSCULOSKELETAL: Generalized weakness. NEUROLOGICAL: Awake, alert, and oriented x3. 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 (2) Pancytopenia Status: Acute Plan: 12/04/16: Plt 32K today. Continue to monitor CBC. 12/03/16: agree with platelet transfusion. monitor CBC 12/01/16: no transfusion today. 11/30/16: Platelets up to 30K with transfusion. WBC and Hgb stable. 11/29/16: Platelets 7K today. Will transfuse 1 unit irradiated platelets. -- Transfuse to keep platelets greater than 10K, Hgb greater than 7. -- No bleeding. (3) Severe neutropenia Status: Acute Plan: 12/04/16: Afebrile overnight. ANC count pending. Remains on Cefepime. 12/03/16: tmax 100.3 overnight. remains on cefepime only. 12/01/16: afebrile. 11/30/16: ANC still 0.1, remains afebrile. 11/28/16: Neutrophil count 0.0 today. Continue neutropenic precautions. -- BC on 11/26 show staph coag neg. -- ID following. 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 Plan 1. Pt is too weak to be able to tolerate any aggressive treatment for his AML. If he continues to be afebrile, he may be discharged to home if he has adequate support to help care for him and follow up in the clinic in one week with Dr. Conteh to continue Vidaza as an outpatient. 2. He should be discharged home on Levaquin 500mg daily and Bactrim DS MWF 3. Pt rec'd plts yesterday. Up to 32K today. Monitor CBC. 4. Blood cultures pending. 5. Supportive care. Attending Statement The exam, history, and the medical decision-making described in the above note were completed with the assistance of the mid-level provider. I reviewed and agree with the findings presented. I attest that I had a [id number] encounter with the patient on the same day, and personally performed and documented my assessment and findings in the medical record. Blood cultures negative. D/C cefepime and transition to Oral Levaquin. Patient opted to go to hospice. OK to d/c to hospice. discussed with patient. Cristina Hernandez Dec 04, 2016 10:14 Zack Conteh MD Dec 04, 2016 20:44
[2016-12-04] MEDS: SODIUM CHLORIDE 0.9% FLUSH 5 ML FLUSH FLUSH SCH ×2 (10:39→21:25)
[2016-12-04] MEDS: DOCUSATE SODIUM 100 MG CAP PO SCH ×2 (10:39→21:00)
[2016-12-04] MEDS: METOPROLOL TARTRATE 50 MG TAB PO SCH ×2 (10:39→21:20)
--- NOTE | 2016-12-04 10:44 | HHI.PR ---
Subjective Remarks States that he is tired. He didn't get much sleep last night. He states that he dribbles and at times has urinary incontinence. He has not had any fevers or chills. He would like to go home soon. No active bleeding overnight. Objective Vitals Vital Signs Date Time Temp Pulse Resp B/P Pulse Ox O2 Delivery O2 Flow Rate FiO2 12/04/16 08:00 97.1 119 18 147/79 98 12/04/16 04:00 99.1 104 18 150/70 92 12/04/16 00:04 97.9 90 18 139/62 92 12/03/16 21:48 92 Room Air 12/03/16 20:00 98.3 91 16 140/72 96 12/03/16 18:01 98.4 88 16 134/65 97 12/03/16 17:49 98.3 86 16 134/62 96 12/03/16 17:00 97.0 66 18 158/65 93 12/03/16 15:30 101.5 102 18 153/74 97 12/03/16 12:00 100.0 99 18 147/74 95 I/O 12/03/16 12/03/16 12/03/16 12/04/16 12/04/16 12/04/16 07:00 15:00 23:00 07:00 15:00 23:00 Intake Total 480 ml 480 ml 150 ml 310 ml Balance 480 ml 480 ml 150 ml 310 ml Intake Oral 480 ml 480 ml 150 ml 200 ml IV Total 110 ml # Voids 3 2 0 2 # Bowel Movements 0 0 0 0 Result Diagram: 12/04/16 0520 12/04/16 0520 Other Results Microbiology Date/Time Procedure Status Source Growth 12/03/16 17:30 Aerobic Blood Culture Received Blood Line Pending 12/03/16 17:30 Anaerobic Blood Culture Received Blood Line Pending 12/03/16 16:12 Aerobic Blood Culture - Final Resulted Blood Peripheral QNS - SEE ANAEROBE REPORT 12/03/16 16:12 Anaerobic Blood Culture Resulted Blood Peripheral Pending 11/29/16 19:38 Aerobic Blood Culture - Preliminary Resulted Blood Peripheral NO GROWTH IN 4 DAYS 11/29/16 19:38 Anaerobic Blood Culture - Preliminary Resulted Blood Peripheral NO GROWTH IN 4 DAYS Objective Remarks GENERAL: This is a well-nourished, well-developed patient, in no apparent distress. CARDIOVASCULAR: Regular rate and rhythm RESPIRATORY: Clear to auscultation. Breath sounds equal bilaterally. No wheezes , rales, or rhonchi. GASTROINTESTINAL: Abdomen soft, non-tender, nondistended. Normal active bowel sounds MUSCULOSKELETAL: Extremities without clubbing, cyanosis, 1+ edema NEURO: Alert & Oriented x4 to person, place, time, situation. Moves all ext x4 A/P Problem List: (1) Pancytopenia ICD Code: D61.818 Status: Acute (2) AML (acute myeloblastic leukemia) ICD Code: C92.00 Status: Acute (3) Severe neutropenia ICD Code: D70.9 Status: Acute (4) Constipation ICD Code: K59.00 Status: Acute Assessment and Plan 76-year-old male with past history myelodysplastic syndrome, CAD, HTN, hyperlipidemia who presented with fatigue acute myeloblastic leukemia: Continued pancytopenia, stable. Hematology currently following - Transfused 1 unit of platelets yesterday to keep platelets greater then 10,000 , today's platelets greater than 10,000 and no further transfusions be given today Keep hemoglobin greater than 7, today's hemoglobin 8 -Status post bone marrow biopsy 12/02/16. Await results of home marrow biopsy. - Further management recommendations per hematology. Neutropenic feverresolved: -Continue antibiotics cefepime IV as per infectious disease and hematology. Due to symptoms of dysuria, will check a urinalysis to rule out underlying UTI. Still awaiting urine culture and urinalysis, discussed with nurse today to use condom catheter clot the urine for evaluation. If this is negative could start discharge planning to home. In addition, blood cultures from Nov is currently pending and was negative may discharge home per envelope cutter for outpatient follow-up. Constipation: MOM Hypertension/hyperlipidemia: Chronic, stable. Continue metoprolol and statin Hypokalemiareplete. Hypophosphatemia-supplement DVT Prophylaxis. Bilateral SCDs, no anticoagulation due to thrombocytopenia. Discharge Planning Discharge planning per clinical course and per hematology's recommendations, if urinalysis and blood cultures are negative, discharged home this weekend with outpatient follow-up with envelope cutter. Lindsey Reagan MD Dec 04, 2016 10:44
[2016-12-04] MEDS ORDERED: POTASSIUM PHOSPHATE MONOBASIC 500 MG TAB PO ONE (11:00)
[2016-12-04 14:05] LABS: BLOOD, URINE MOD (NEG); COMMENT (UR) CULT NOT INDICATED; CULTURE IF INDICATED CULT NOT INDICATED; GLUCOSE,URINE NEG (NEG); KETONE, URINE NEG (NEG); MUCUS URINE FEW /lpf (OCC); NITRITE,URINE NEG (NEG); PH, URINE 5.5 (5.0-8.5); URINE COLOR YELLOW (YELLW/STRAW)
--- NOTE | 2016-12-04 20:03 | HHI.PR ---
Addendum to Inpatient Note Additional Information Pt is going to hospice in am will sign off Teresa Henriquez MD Dec 04, 2016 20:03
[2016-12-04] MEDS: ATORVASTATIN 80 MG TAB PO SCH (21:20)
[2016-12-05] VITALS: BP 121/64; PULSE 105; RESP 18; TEMP 100.5; O2SAT 93
[2016-12-05] MEDS: ACETAMINOPHEN 325 MG TAB PO PRN (03:19)
[2016-12-05 04:00] VITALS: BP 144/69; PULSE 111; RESP 18; TEMP 101.5; O2SAT 94
[2016-12-05 04:43] LABS: HEMATOCRIT 23.2 % (39.0-51.0); MEAN CELL VOLUME 87.3 FL (80.0-100.0); MEAN CORPUSCULAR HEMOGLOBIN 30.2 PG (27.0-34.0); MEAN CORPUSCULAR HGB CONC 34.6 % (32.0-36.0); PLATELET COUNT 23 TH/MM3 (150-450); RED BLOOD COUNT 2.66 MIL/MM3 (4.50-5.90); RED CELL DISTRIBUTION WIDTH 14.5 % (11.6-17.2); WHITE BLOOD COUNT 8.5 TH/MM3 (4.0-11.0)
[2016-12-05 04:45] LABS: HEMO FLAGS AUTO DIFF
[2016-12-05 04:55] LABS: ALT (GPT) 69 U/L (12-78); ANION GAP 9 MEQ/L (5-15); AST (GOT) 47 U/L (15-37); BICARBONATE 28.3 MEQ/L (21.0-32.0); BLOOD UREA NITROGEN 12 MG/DL (7-18); CHLORIDE 99 MEQ/L (98-107); GLOMERULAR FILTRATION RATE 124 ML/MIN (>89); MAGNESIUM 2.1 MG/DL (1.5-2.5); POTASSIUM 3.2 MEQ/L (3.5-5.1); SODIUM (NA) 136 MEQ/L (136-145); URIC ACID 2.4 MG/DL (2.6-7.2)
[2016-12-05 04:57] LABS: ALKALINE PHOSPHATASE 149 U/L (45-117); TOTAL BILIRUBIN ADULT 0.9 MG/DL (0.2-1.0)
[2016-12-05 08:00] VITALS: BP 130/69; PULSE 96; RESP 16; TEMP 96.6; O2SAT 96
[2016-12-05 08:31] LABS: BLASTS 86 % (0-0); PLATELET ESTIMATE SMEAR LOW (NORMAL); PLATELET MORPHOLOGY NORMAL (NORMAL); WBC DIFF SAMPLE 100
[2016-12-05 08:32] LABS: SCAN/DIFF FINAL DIFF MANUAL
[2016-12-05] MEDS ORDERED: LEVOFLOXACIN 500 MG TAB PO SCH (09:00)
[2016-12-05] MEDS: METOPROLOL TARTRATE 50 MG TAB PO SCH (09:34)
[2016-12-05] MEDS: DOCUSATE SODIUM 100 MG CAP PO SCH (09:34)
[2016-12-05] MEDS: SODIUM CHLORIDE 0.9% FLUSH 5 ML FLUSH FLUSH SCH (09:36)
--- NOTE | 2016-12-05 10:41 | PD.ONC.PN ---
Subjective Subjective Remarks c/o pain agree w/ hospice care pending transfer to care center Objective Data Date Time Temp Pulse Resp B/P Pulse Ox O2 Delivery O2 Flow Rate FiO2 12/05/16 08:00 96.6 96 16 130/69 96 12/05/16 04:00 101.5 111 18 144/69 94 12/05/16 00:00 100.5 105 18 121/64 93 12/04/16 20:45 Room Air 12/04/16 20:00 100.2 117 19 133/76 94 12/04/16 16:07 97 140/68 12/04/16 16:00 99.6 96 18 140/68 94 12/04/16 12:00 99.9 100 16 147/71 100 Result Diagram: 12/05/16 0335 12/05/16 0335 Laboratory Results Laboratory Tests Test 12/04/16 12/05/16 13:15 03:35 Urine Color YELLOW Urine Turbidity HAZY Urine pH 5.5 Urine Specific [place] 1.018 Urine Protein 100 mg/dL Urine Glucose (UA) NEG mg/dL Urine Ketones NEG mg/dL Urine Occult Blood MOD Urine Nitrite NEG Urine Bilirubin NEG Urine Urobilinogen LESS THAN 2.0 MG/DL Urine Leukocyte Esterase NEG Urine RBC /hpf Urine WBC 2 /hpf Urine Mucus FEW /lpf Microscopic Urinalysis Comment CULT NOT INDICATED White Blood Count 8.5 TH/MM3 Red Blood Count 2.66 MIL/MM3 Hemoglobin 8.0 GM/DL Hematocrit 23.2 % Mean Corpuscular Volume 87.3 FL Mean Corpuscular Hemoglobin 30.2 PG Mean Corpuscular Hemoglobin 34.6 % Concent Red Cell Distribution Width 14.5 % Platelet Count 23 TH/MM3 Mean Platelet Volume 7.4 FL Neutrophils (%) (Auto) % Lymphocytes (%) (Auto) % Monocytes (%) (Auto) % Eosinophils (%) (Auto) % Basophils (%) (Auto) % Neutrophils # (Auto) TH/MM3 Lymphocytes # (Auto) TH/MM3 Monocytes # (Auto) TH/MM3 Eosinophils # (Auto) TH/MM3 Basophils # (Auto) TH/MM3 CBC Comment AUTO DIFF Differential Total Cells 100 Counted Lymphocytes % 14 % Neutrophils # (Manual) 0.0 TH/MM3 Differential Comment FINAL DIFF MANUAL Blastocytes 86 % Platelet Estimate LOW Platelet Morphology Comment NORMAL Sodium Level 136 MEQ/L Potassium Level 3.2 MEQ/L Chloride Level 99 MEQ/L Carbon Dioxide Level 28.3 MEQ/L Anion Gap 9 MEQ/L Blood Urea Nitrogen 12 MG/DL Creatinine 0.63 MG/DL Estimat Glomerular Filtration 124 ML/MIN Rate Random Glucose 110 MG/DL Uric Acid 2.4 MG/DL Calcium Level 7.6 MG/DL Phosphorus Level 1.8 MG/DL Magnesium Level 2.1 MG/DL Total Bilirubin 0.9 MG/DL Aspartate Amino Transf 47 U/L (AST/SGOT) Alanine Aminotransferase 69 U/L (ALT/SGPT) Alkaline Phosphatase 149 U/L Total Protein 5.7 GM/DL Albumin 1.4 GM/DL Culture Results Microbiology Date/Time Procedure Status Source Growth 12/03/16 16:12 Aerobic Blood Culture - Final Resulted Blood Peripheral QNS - SEE ANAEROBE REPORT 12/03/16 16:12 Anaerobic Blood Culture - Preliminary Resulted Blood Peripheral NO GROWTH IN 1 DAY 12/03/16 17:30 Aerobic Blood Culture - Preliminary Resulted Blood Line NO GROWTH IN 1 DAY 12/03/16 17:30 Anaerobic Blood Culture - Preliminary Resulted Blood Line NO GROWTH IN 1 DAY 12/05/16 03:35 Aerobic Blood Culture Received Blood Line Pending 12/05/16 03:35 Anaerobic Blood Culture Received Blood Line Pending Administered Medications Medications (Trade) Dose Ordered Sig/Catina Route PRN Reason Start Time Stop Time Status Last Admin Dose Admin IV Flush (NS Flush) 2 ml UNSCH PRN FLUSH FLUSH AFTER USING IV ACCESS 11/25/16 16:15 11/29/16 11:20 IV Flush (NS Flush) 2 ml BID FLUSH 11/25/16 21:00 12/05/16 09:36 Acetaminophen (Tylenol) 650 mg Q4H PRN PO TEMP > 100.4 11/25/16 17:00 12/05/16 03:19 Sennosides (Senokot) 17.2 mg Q12H PRN PO CONSTIPATION 11/25/16 17:00 11/27/16 05:17 Atorvastatin Calcium (Lipitor) 80 mg HS PO 11/25/16 21:00 12/04/16 21:20 Metoprolol Tartrate (Lopressor) 50 mg Q12HR PO 11/25/16 21:00 12/05/16 09:34 Docusate Sodium (Colace) 100 mg Q12HR PO 12/01/16 09:00 12/05/16 09:34 Levofloxacin (Levaquin) 500 mg DAILY PO 12/05/16 09:00 12/05/16 09:34 Objective Remarks GENERAL: Pale appearing older male, lying in bed asleep on approach. SKIN: Warm and dry. HEAD: Normocephalic. EYES: No injection or drainage. NECK: Supple, trachea midline. CARDIOVASCULAR: +S1/S2. Regular rate/rhythm. RESPIRATORY: Scattered exp wheezes. No accessory muscle use. GASTROINTESTINAL: Abdomen soft, non-tender, nondistended. Protuberant. EXTREMITIES: Anasarca. 2-3+ edema to all four extremities. MUSCULOSKELETAL: Generalized weakness. NEUROLOGICAL: Awake, alert, and oriented x3. 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 Decline induction, decided on hospice care. Discussed w/ Dr. Perdomo yesterday. --Getting Chelseyd[facility] as an outpatient. 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 (2) Pancytopenia Status: Acute Plan: 12/05/16. Neutropenic, hgb 8.0, platelet 23K. No transfusion needed. 12/04/16: Plt 32K today. Continue to monitor CBC. 12/03/16: agree with platelet transfusion. monitor CBC 12/01/16: no transfusion today. 11/30/16: Platelets up to 30K with transfusion. WBC and Hgb stable. 11/29/16: Platelets 7K today. Will transfuse 1 unit irradiated platelets. -- Transfuse to keep platelets greater than 10K, Hgb greater than 7. -- No bleeding. (3) Severe neutropenia Status: Acute Plan: 12/05/16. ANC 0, Still neutropenic but afebrile. Anticipate stopping abx as he transition to hospice care and transfer to care center. 12/04/16: Afebrile overnight. ANC count pending. Remains on Cefepime. 12/03/16: tmax 100.3 overnight. remains on cefepime only. 12/01/16: afebrile. 11/30/16: ANC still 0.1, remains afebrile. 11/28/16: Neutrophil count 0.0 today. Continue neutropenic precautions. -- BC on 11/26 show donis cano neg. -- ID following. 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 Plan 1. Discussed w/ hospice, pending transfer to care center today. 2. Optimize pain control at care center 3. Supportive care. Lisette Whittington MD Dec 05, 2016 10:41
[2016-12-05] MEDS ORDERED: OXYC1TAB63 PO (11:15)
[2016-12-05 12:00] VITALS: BP 126/71; PULSE 86; RESP 16; TEMP 99.8; O2SAT 95
--- NOTE | 2016-12-05 12:25 | HHI.DS ---
Discharge Summary Admission Date Nov 25, 2016 at 18:14 Discharge Date: Dec 05, 2016 Admitting Diagnosis symptomatic anemia, pancytopenia, AML (1) Pancytopenia ICD Code: D61.818 (2) AML (acute myeloblastic leukemia) ICD Code: C92.00 (3) Severe neutropenia ICD Code: D70.9 (4) Constipation ICD Code: K59.00 Procedures See below Bone marrow biopsy 12/02/16 Brief History - From Admission 76 years old male with history of MDS high grade refractory anemia of excess blast was recently hospitalized last month for neutropenia after chemotherapy, he stated his last dose was about 5 weeks ago, the patient came today with a complaint of severe fatigue he was found to have a severely dropped hemoglobin of 3.8 no obvious and platelet count of 1.5 and platelet count of 18 K. Patient denied any cough, flulike syndrome, diarrhea or constipation or dysuria , fever or chills, no dizziness or lightheadedness, no abdominal pain diarrhea constipation, nausea or vomiting. Patient was on vidaza by Dr. Conteh, I discussed with ED physician, and Dr. 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 Perdomo decide on the next above treatment, versus 2 start cytarabine or CBC/BMP: 12/05/16 0335 12/05/16 0335 Significant Findings Laboratory Tests Test 12/03/16 12/04/16 12/04/16 12/05/16 07:02 05:20 13:15 03:35 Red Blood Count 2.62 MIL/MM3 2.60 MIL/MM3 2.66 MIL/MM3 (4.50-5.90) (4.50-5.90) (4.50-5.90) Hemoglobin 8.0 GM/DL 7.8 GM/DL 8.0 GM/DL (13.0-17.0) (13.0-17.0) (13.0-17.0) Hematocrit 22.8 % 22.5 % 23.2 % (39.0-51.0) (39.0-51.0) (39.0-51.0) Platelet Count 10 TH/MM3 32 TH/MM3 23 TH/MM3 (150-450) (150-450) (150-450) Blastocytes 69 % (0-0) 58 % (0-0) 86 % (0-0) Plasma Cells 1 % (0-0) 1 % (0-0) Platelet Estimate RARE (NORMAL) RARE (NORMAL) LOW (NORMAL) Potassium Level 3.0 MEQ/L 3.2 MEQ/L (3.5-5.1) (3.5-5.1) Creatinine 0.56 MG/DL 0.57 MG/DL (0.60-1.30) (0.60-1.30) Random Glucose 115 MG/DL 110 MG/DL (74-106) (74-106) Calcium Level 7.4 MG/DL 7.2 MG/DL 7.6 MG/DL (8.5-10.1) (8.5-10.1) (8.5-10.1) Protein Corrected Calcium 8.2 MG/DL 7.9 MG/DL (8.5-10.1) (8.5-10.1) Total Protein 5.6 GM/DL 5.8 GM/DL 5.7 GM/DL (6.4-8.2) (6.4-8.2) (6.4-8.2) Neutrophils # (Manual) 0.0 TH/MM3 0.0 TH/MM3 (1.8-7.7) (1.8-7.7) Uric Acid 2.3 MG/DL 2.4 MG/DL (2.6-7.2) (2.6-7.2) Phosphorus Level 1.8 MG/DL 1.8 MG/DL (2.5-4.9) (2.5-4.9) Urine Turbidity HAZY (CLEAR) Urine Protein 100 mg/dL (NEG-TRACE) Urine Occult Blood MOD (NEG) Urine Mucus FEW /lpf (OCC) Aspartate Amino Transf 47 U/L (15-37) (AST/SGOT) Alkaline Phosphatase 149 U/L (45-117) Albumin 1.4 GM/DL (3.4-5.0) PE at Discharge GENERAL: This is a well-nourished, well-developed patient, in no apparent distress. CARDIOVASCULAR: Regular rate and rhythm RESPIRATORY: Clear to auscultation. Breath sounds equal bilaterally. No wheezes , rales, or rhonchi. GASTROINTESTINAL: Abdomen soft, non-tender, nondistended. Normal active bowel sounds MUSCULOSKELETAL: Extremities without clubbing, cyanosis, 1+ edema NEURO: Alert & Oriented x4 to person, place, time, situation. Moves all ext x4 Hospital Course Unfortunate 76 years old male with history of MDS coronary artery disease and hypertension hyperlipidemia with multiple hospitalization for pancytopenia and neutropenic fever he is status post chemotherapy by Dr. Perdomo, admitted this time as well for the same problem, pancytopenia which become acute myeloblastic leukemia, patient started on steroid, prophylactic antibiotic, hematology oncology consulted bone marrow biopsy on 12/02/16 has been done which confirmed AML, eventually decision by the patient and oncology confirmed to go with hospice. Patient met with hospice team he will be transferred to hospice center [id number] encounter performed with the patient on discharge day, as well as physical exam, summary of hospitalization course and postdischarge plan has been D/W the patient. D/W nurse D/W hospice care nurse discharge summary has been placed. Pt Condition on Discharge: Deteriorating Discharge Disposition: Hospice/Med Facility Discharge Time: > 30 minutes Discharge Instructions DIET: Follow Instructions for: Heart Healthy Diet Activities you can perform: See Additionl Instruction Other Activity Instructions: per hospice protocol Mee Pettit MD Dec 05, 2016 12:25
== END 2016-12-05 13:33 | disposition hospice, inpatient (51) | DRG 835 ==
LOC: NEPE 14:29 → NEDA 18:14 → N04A 20:42 → N06B 11-26 18:05 → HOCA 12-03 17:06
PROVIDERS: ADMIT Hospitalist; ATTEND Hospitalist
PROC: 30243N1 Transfusion of Nonautologous Red Blood Cells into Central Vein, Percutaneous Approach (ICD-10-PCS; principal; 2016-11-25)
PROC: 30253R1 (ICD-10-PCS; 2016-11-29)
PROC: 07DR3ZX Extraction of Iliac Bone Marrow, Percutaneous Approach, Diagnostic (ICD-10-PCS; 2016-12-02)
DX: C92.00 Acute myeloblastic leukemia, not having achieved remission (principal); D61.818 Other pancytopenia; R78.81 Bacteremia; R50.81 Fever presenting with conditions classified elsewhere; I10 Essential (primary) hypertension; E78.5 Hyperlipidemia, unspecified; I25.10 Atherosclerotic heart disease of native coronary artery without angina pectoris; K59.00 Constipation, unspecified; R35.0 Frequency of micturition; E87.6 Hypokalemia; R32 Unspecified urinary incontinence; E83.39 Other disorders of phosphorus metabolism; H91.90 Unspecified hearing loss, unspecified ear; Z51.5 Encounter for palliative care; Z66 Do not resuscitate; Z92.21 Personal history of antineoplastic chemotherapy; Z95.1 Presence of aortocoronary bypass graft
CPT/HCPCS: 36430; 38221; 71010; 77012; 80048; 80053; 80202; 81001; 82948; 83735; 84100; 84155; 84550; 85007; 85014; 85018; 85027; 85060; 85097; 85610; 85730; 86403; 86850; 86900; 86901; 86920; 87040; 87086; 87205; 87493; 88184; 88185; 88237; 88264; 88280; 88305; 88311; 88313; 96360; 96361; 99152; C1830; G0364; J0692; J1450; J1642; J1956; J2250; J3010; J3370; J7030; J7040; J7050; P9037; P9040